=== PATIENT | female | born 1935 | race Caucasian/White ===

== ENCOUNTER 2016-11-24 16:23 | Emergency (ER) | payer MEDICARE ==
[2016-11-24 16:30] VITALS: RESP 16; TEMP 98.2
[2016-11-24] MEDS ORDERED: ASPIRIN 81 MG CHEW PO STA (16:50)
[2016-11-24] MEDS ORDERED: SODIUM CHLORIDE 0.9% 500 ML IV STA (16:50)
[2016-11-24 17:15] LABS: Aty Lym Flag Slight; CH 30.4; CHCM 33.6; HCT 36.3 % (34.0-46.0); HDW 2.53; HGB 11.6 gm/dL (11.4-16.0); MCH 29.1 pg (25.0-35.0); MCV 90.8 fL (80.0-100.0); Mean Platelet Volume 7.4; RDW 13.7 % (11.5-15.5); WBC (Perox) 6.56
[2016-11-24 17:26] LABS: Anion Gap 10 mmol/L; Blood Urea Nitrogen 23 mg/dL (7-17); Calcium 8.6 mg/dL (8.4-10.2); Carbon Dioxide 21 mmol/L (22-30); Chloride 106 mmol/L (98-107); Glucose 131 mg/dL (74-99); Non-African American GFR(MDRD) >60 (>60 ml/min/1.73 sqM); Potassium 4.1 mmol/L (3.5-5.1); Sodium 137 mmol/L (137-145)
[2016-11-24 17:35] LABS: Add Differential Manual Differential
[2016-11-24 17:38] LABS: Manual Review Performed; Nucleated Red Blood Cells 0 /100 WBC (0-0); RBC Morphology Normal; Total Cells Counted 100
[2016-11-24 17:53] LABS: Amorphous Sediment,Urine Rare /hpf; Appearance,Urine Clear (Clear); Bilirubin,Urine Negative (Negative); Glucose,Urine (UA) Negative (Negative); Ketones,Urine Negative (Negative); Leukocyte Esterase,Urine Small (Negative); Nitrite,Urine Negative (Negative); Particle Count 925; Protein,Urine Negative (Negative); RBC,Urine <1 /hpf (0-5); Specific Gravity,Urine 1.007 (1.001-1.035); Squamous Epithelial Cell,Urine 1 /hpf (0-4); UA Billing (MACRO vs. MICRO) MICRO; Urobilinogen,Urine <2.0 mg/dL (<2.0); WBC,Urine 11 /hpf (0-5)
--- NOTE | 2016-11-24 17:56 | ED ---
General Adult HPI - General Chief complaint: Syncope Stated complaint: syncope Time Seen by Provider: 11/24/16 16:35 Source: patient, EMS, RN notes reviewed, old records reviewed Mode of arrival: EMS Limitations: no limitations - History of Present Illness Initial comments: 81-year-old female presenting for lightheadedness and near syncopal episode. Patient states that she had just gotten up from a nap and stood up and felt dizzy and almost passed out back on the couch. She denies any injury from this. She states she's had some persistent dizziness since this episode. She denies CP. She denies any shortness of breath. She denies any fevers or chills. She denies any nausea or vomiting. - Related Data Home Medications Medication Instructions Recorded Confirmed Isosorbide Mononitrate [Imdur] 30 mg PO DAILY 01/10/14 11/24/16 glipiZIDE XL [Glucotrol XL] 7.5 mg PO AC-BRKFST 10/14/15 11/24/16 Aspirin EC [Ecotrin Low Dose] 81 mg PO DAILY 12/07/15 11/24/16 ALPRAZolam [ALPRAZolam] 0.25 mg PO TID PRN 04/15/16 11/24/16 Levothyroxine Sodium [Synthroid] 50 mcg PO DAILY 04/15/16 11/24/16 Ranitidine HCl [Zantac] 150 mg PO BID 04/15/16 11/24/16 Cholecalciferol [Vitamin D3] 2,000 unit PO DAILY 11/24/16 11/24/16 Lisinopril [Zestril] 10 mg PO DAILY 11/24/16 11/24/16 Metoprolol Tartrate [Lopressor] 25 mg PO BID 11/24/16 11/24/16 Nystatin 100,000Unit/gm Cream 1 applic TOPICAL BID 11/24/16 11/24/16 [Mycostatin Cream] traMADol HCL [Ultram] 50 mg PO Q6HR PRN 11/24/16 11/24/16 Previous Rx's Medication Instructions Recorded Meclizine [Antivert] 25 mg PO QID PRN #16 tab 11/24/16 Allergies Allergy/AdvReac Type Severity Reaction Status Date / Time codeine AdvReac Nausea & Verified 11/24/16 16:43 Vomiting tramadol AdvReac Nausea & Verified 11/24/16 16:43 Vomiting Review of Systems ROS Statement: Those systems with pertinent positive or pertinent negative responses have been documented in the HPI. Constitutional: No fevers. No chills. No change in appetite. No unexpected weight loss. Eyes: No visual changes. No eye pain. No sensitivity to light. HENT: No sinus pressure. No ear pain. No hearing changes. No epistaxis. No sore throat. Respiratory: No cough. No SOB. No wheezing. Cardiovascular: No chest pain. No palpitations. No lower extremity edema. Abdomen: No abdominal pain. No nausea. No vomiting. No diarrhea. Genitourinary: No dysuria. No hematuria. No difficulty urinating. No flank pain. Musculoskeletal: No injury. No back pain. No myalgias. Skin: No rash. No lesions. No lacerations. Neuro: No gross strength deficits. Positive near syncope. Lightheadedness. No seizures. No headache. Psych: No confusion. No memory changes. No anxiety/depression. ROS Other: All systems not noted in ROS Statement are negative. Past Medical History Past Medical History: Chest Pain / Angina, Diabetes Mellitus, GERD/Reflux, Hyperlipidemia, Hypertension, Myocardial Infarction ([place]), Osteoarthritis (OA), Pneumonia, Thyroid Disorder Additional Past Medical History / Comment(s): carotid stenosis,sob w/activity, freq constipation,numbness and tingling thomas hands, pneumonia 4 yrs ago, gallstones, urinary leakage, uses a walker Last Myocardial Infarction Date:: 2003 History of Any Multi-Drug Resistant Organisms: None Reported Past Surgical History: Appendectomy, Back Surgery, Cholecystectomy, Heart Catheterization With Stent, Tonsillectomy Additional Past Surgical History / Comment(s): thomas cataract, right carotid endarterectomy,2-12-16 LAP UMBILICAL HERNIA REPAIR AND CHOLEY Past Anesthesia/Blood Transfusion Reactions: Motion Sickness, Postoperative Nausea & Vomiting (PONV) Date of Last Stent Placement:: 2003 Past Psychological History: Anxiety, Depression Additional Psychological History / Comment(s): hx panic attacks. Smoking Status: Never smoker Past Alcohol Use History: None Reported Past Drug Use History: None Reported - Past Family History Father Family Medical History: Liver Disease Additional Family Medical History / Comment(s): etoh, cirrhosis of the liver Mother Family Medical History: Diabetes Mellitus Additional Family Medical History / Comment(s): heart problems. Son(s) Family Medical History: Diabetes Mellitus General Exam - General Exam Comments Initial Comments: General: Awake and Alert. No acute distress. Does not appear acutely ill. Eyes: JOVON, EOM intact. No nystagmus. No scleral icterus. HENT: Atraumatic, normocephalic. Mucous membranes moist. Trachea midline. Neck: The neck is supple, there is no tenderness or JVD. Cardiovascular: Regular rate and rhythm. No murmur, rub, or gallop is appreciated. Distal pulses intact. Respiratory: Lungs are clear to auscultation bilaterally. No wheezes, rales, rhonchi. No respiratory distress. Gastrointestinal: Soft, Nontender. No rebound or guarding. Non-distended. No masses or organomegaly noted. No CVA tenderness. Musculoskeletal: No tenderness. Normal ROM. No gross deformity. No strength deficits. Neurological: A&Ox3. CN II-XII grossly intact, There are no obvious motor or sensory deficits. Coordination appears grossly intact. Speech is normal. Skin: Skin is warm and dry and no rashes or lesions are noted. Psychiatric: Cooperative, appropriate mood & affect, normal judgment. Limitations: no limitations Course Vital Signs 11/24/16 16:27 Temperature 98.2 F Pulse Rate 79 Respiratory 16 Rate Blood Pressure 205/84 O2 Sat by Pulse 97 Oximetry EKG Findings - EKG Comments: EKG Findings:: EKG 20:39. No sinus rhythm. Rate 76. DE 1:30. QRS 72. QT/ QTc 386/434. Normal axis. No STEMI. Normal EKG. Medical Decision Making - Medical Decision Making 81-year-old female presenting for dizziness and possible near syncope. Patient dates that she does have some active dizziness on initial exam. She denies any chest pain or shortness of breath associated. Lab workup including cardiac evaluation was performed. Chest x-ray no acute process Lab workup grossly unremarkable. Troponins negative 2 UA with possible infection, although pt denies urinary symptoms, no plan for treatment at this time Reevaluation of patient with improved blood pressure without medication. States she is still feeling some dizziness still. Antivert was given and she states this did improve her dizziness. She was able to stand with stable gait. I called and discussed with Dr. Ojeda. He is very familiar with the patient states she's had issues with dizziness in the past. We discussed her evaluation today. Discussed that she does not wish to stay in the hospital, and appears stable this time for discharge home with outpatient follow-up. He is agreeable with this plan. I discussed plan for patient follow-up in the next 2-[address] Ojeda. Discussed concerning signs symptoms for immediate return to the ED. Will write for Antivert for home as needed. Discussed changing position slowly to allow her body compensate for positional changes as there may be some orthostatic component to her dizziness. His low suspicion of ACS, CVA, or central vertigo at this time requiring further inpatient admission. Pt is agreeable with plan and discharge home. Pt was concerned she could not get back into [facility] due to leaving her outdoor meyer in her apartment when EMS arrived. I called [facility] and they state staff will be there to let her back in when she arrives. - Lab Data Result diagrams: 11/24/16 16:45 11/24/16 16:45 Lab Results 11/24/16 11/24/16 11/24/16 Range/Units 16:45 16:45 16:45 WBC 6.0 (3.8-10.6) k/uL RBC 4.00 (3.80-5.40) m/uL Hgb 11.6 (11.4-16.0) gm/dL Hct 36.3 (34.0-46.0) % MCV 90.8 (80.0-100.0) fL MCH 29.1 (25.0-35.0) pg MCHC 32.0 (31.0-37.0) g/dL RDW 13.7 (11.5-15.5) % Plt Count 243 (150-450) k/uL Neutrophils % (Manual) 50.0 % Lymphocytes % (Manual) 36.0 % Monocytes % (Manual) 9.0 % Eosinophils % (Manual) 5.0 % Neutrophils # (Manual) 3.0 (1.3-7.7) k/uL Lymphocytes # (Manual) 2.2 (1.0-4.8) k/uL Monocytes # (Manual) 0.5 (0-1.0) k/uL Eosinophils # (Manual) 0.3 (0-0.7) k/uL Nucleated RBCs 0 (0-0) /100 WBC Manual Slide Review Performed RBC Morphology Normal Sodium 137 (137-145) mmol/L Potassium 4.1 (3.5-5.1) mmol/L Chloride 106 (98-107) mmol/L Carbon Dioxide 21 L (22-30) mmol/L Anion Gap 10 mmol/L BUN 23 H (7-17) mg/dL Creatinine 0.87 (0.52-1.04) mg/dL Est GFR (MDRD) Af Amer >60 (>60 ml/min/1.73 sqM) Est GFR (MDRD) Non-Af >60 (>60 ml/min/1.73 sqM) Glucose 131 H (74-99) mg/dL Calcium 8.6 (8.4-10.2) mg/dL Troponin I (0.000-0.034) ng/mL NT-Pro-B Natriuret Pep 127 pg/mL TSH 3.230 (0.465-4.680) mIU/L Urine Color Urine Appearance (Clear) Urine pH (5.0-8.0) Ur Specific [place] (1.001-1.035) Urine Protein (Negative) Urine Glucose (UA) (Negative) Urine Ketones (Negative) Urine Blood (Negative) Urine Nitrite (Negative) Urine Bilirubin (Negative) Urine Urobilinogen (<2.0) mg/dL Ur Leukocyte Esterase (Negative) Urine RBC (0-5) /hpf Urine WBC (0-5) /hpf Ur Squamous Epith Cells (0-4) /hpf Amorphous Sediment (None) /hpf 11/24/16 11/24/16 11/24/16 Range/Units 16:45 17:10 19:26 WBC (3.8-10.6) k/uL RBC (3.80-5.40) m/uL Hgb (11.4-16.0) gm/dL Hct (34.0-46.0) % MCV (80.0-100.0) fL MCH (25.0-35.0) pg MCHC (31.0-37.0) g/dL RDW (11.5-15.5) % Plt Count (150-450) k/uL Neutrophils % (Manual) % Lymphocytes % (Manual) % Monocytes % (Manual) % Eosinophils % (Manual) % Neutrophils # (Manual) (1.3-7.7) k/uL Lymphocytes # (Manual) (1.0-4.8) k/uL Monocytes # (Manual) (0-1.0) k/uL Eosinophils # (Manual) (0-0.7) k/uL Nucleated RBCs (0-0) /100 WBC Manual Slide Review RBC Morphology Sodium (137-145) mmol/L Potassium (3.5-5.1) mmol/L Chloride (98-107) mmol/L Carbon Dioxide (22-30) mmol/L Anion Gap mmol/L BUN (7-17) mg/dL Creatinine (0.52-1.04) mg/dL Est GFR (MDRD) Af Amer (>60 ml/min/1.73 sqM) Est GFR (MDRD) Non-Af (>60 ml/min/1.73 sqM) Glucose (74-99) mg/dL Calcium (8.4-10.2) mg/dL Troponin I <0.012 <0.012 (0.000-0.034) ng/mL NT-Pro-B Natriuret Pep pg/mL TSH (0.465-4.680) mIU/L Urine Color Light Yellow Urine Appearance Clear (Clear) Urine pH 6.0 (5.0-8.0) Ur Specific [place] 1.007 (1.001-1.035) Urine Protein Negative (Negative) Urine Glucose (UA) Negative (Negative) Urine Ketones Negative (Negative) Urine Blood Negative (Negative) Urine Nitrite Negative (Negative) Urine Bilirubin Negative (Negative) Urine Urobilinogen <2.0 (<2.0) mg/dL Ur Leukocyte Esterase Small H (Negative) Urine RBC <1 (0-5) /hpf Urine WBC 11 H (0-5) /hpf Ur Squamous Epith Cells 1 (0-4) /hpf Amorphous Sediment Rare H (None) /hpf - EKG Data -: EKG Interpreted by Ne EKG shows normal: sinus rhythm Rate: normal - Radiology Data Radiology results: report reviewed, image reviewed Disposition Clinical Impression: Dizziness, Near syncope Disposition: HOME SELF-CARE Condition: Stable Instructions: Lightheadedness (ED), Near Syncope (ED) Prescriptions: Meclizine [Antivert] 25 mg PO QID PRN #16 tab PRN Reason: dizziness Referrals: Guzman Ojeda DO [Primary Care Provider] - 1-2 days Time of Disposition: 20:45
[2016-11-24] MEDS ORDERED: MECLIZINE 12.5 MG TAB PO STA (19:05)
--- NOTE | 2016-11-24 19:17 | XR ---
EXAMINATION TYPE: XR chest 2V DATE OF EXAM: 11/24/2016 6:55 PM COMPARISON: April 15, 2016 HISTORY: Dizziness TECHNIQUE: Frontal and lateral views of the chest are obtained. FINDINGS: There is no focal air space opacity, pleural effusion, or pneumothorax seen. The cardiac silhouette size is within normal limits. The osseous structures are intact. IMPRESSION: No acute cardiopulmonary process.
[2016-11-24 21:07] VITALS: BP 188/76; PULSE 65
== END 2016-11-24 21:07 | disposition home or self-care (01) ==
LOC: EC 16:23
DX: R55 Syncope and collapse (principal); R42 Dizziness and giddiness; I10 Essential (primary) hypertension; E11.9 Type 2 diabetes mellitus without complications; M19.90 Unspecified osteoarthritis, unspecified site; E07.9 Disorder of thyroid, unspecified; K21.9 Gastro-esophageal reflux disease without esophagitis; F41.9 Anxiety disorder, unspecified; F32.9 Major depressive disorder, single episode, unspecified; Z79.82 Long term (current) use of aspirin; Z79.84 Long term (current) use of oral hypoglycemic drugs; Z79.899 Other long term (current) drug therapy; Z88.5 Allergy status to narcotic agent; Z88.6 Allergy status to analgesic agent; Z86.79 Personal history of other diseases of the circulatory system
CPT/HCPCS: 36415; 71020; 80048; 81001; 83880; 84443; 84484; 85025; 93005; 99285

== ENCOUNTER 2017-04-01 02:30 | Emergency (ER) | payer MEDICARE ==
[2017-04-01] MEDS ORDERED: hydrALAZINE HCL 20 MG/ML 1 ML VIAL IVP STA ×2 (02:35→03:42)
--- NOTE | 2017-04-01 02:41 | ED ---
General Adult HPI - General Stated complaint: hypertension,headache Time Seen by Provider: 04/01/17 02:30 Source: RN notes reviewed - History of Present Illness Initial comments: This is an 81-year-old female presents emergency Department with the complaint of having a headache and having elevated blood pressure. Patient states about 3 days ago she noted her blood pressure was elevated and she was having headaches she went to see her doctor and he diagnosed with urinary tract infection and gave her an antibiotic. Patient states this evening she woke up with a headache which she states was significant and she nor blood pressure was elevated. Patient states that her blood pressure and her systolic pressure was over 200. Patient denies any numbness or weakness. Patient denies any visual disturbance. Patient denies any chest pain palpitations difficulty breathing or shortness of breath. Patient denies any recent fever chills or cough. Patient denies abdominal pain patient denies nausea vomiting or diarrhea - Related Data Home Medications Medication Instructions Recorded Confirmed Isosorbide Mononitrate [Imdur] 30 mg PO DAILY 01/10/14 11/24/16 glipiZIDE XL [Glucotrol XL] 7.5 mg PO AC-BRKFST 10/14/15 11/24/16 Aspirin EC [Ecotrin Low Dose] 81 mg PO DAILY 12/07/15 11/24/16 ALPRAZolam [ALPRAZolam] 0.25 mg PO TID PRN 04/15/16 11/24/16 Levothyroxine Sodium [Synthroid] 50 mcg PO DAILY 04/15/16 11/24/16 Ranitidine HCl [Zantac] 150 mg PO BID 04/15/16 11/24/16 Cholecalciferol [Vitamin D3] 2,000 unit PO DAILY 11/24/16 11/24/16 Lisinopril [Zestril] 10 mg PO DAILY 11/24/16 11/24/16 Metoprolol Tartrate [Lopressor] 25 mg PO BID 11/24/16 11/24/16 Nystatin 100,000Unit/gm Cream 1 applic TOPICAL BID 11/24/16 11/24/16 [Mycostatin Cream] traMADol HCL [Ultram] 50 mg PO Q6HR PRN 11/24/16 11/24/16 Previous Rx's Medication Instructions Recorded Meclizine [Antivert] 25 mg PO QID PRN #16 tab 11/24/16 Allergies Allergy/AdvReac Type Severity Reaction Status Date / Time codeine AdvReac Nausea & Verified 11/24/16 16:43 Vomiting tramadol AdvReac Nausea & Verified 11/24/16 16:43 Vomiting Review of Systems ROS Statement: Those systems with pertinent positive or pertinent negative responses have been documented in the HPI. ROS Other: All systems not noted in ROS Statement are negative. Past Medical History Past Medical History: Chest Pain / Angina, Diabetes Mellitus, GERD/Reflux, Hyperlipidemia, Hypertension, Myocardial Infarction ([place]), Osteoarthritis (OA), Pneumonia, Thyroid Disorder Additional Past Medical History / Comment(s): carotid stenosis,sob w/activity, freq constipation,numbness and tingling thomas hands, pneumonia 4 yrs ago, gallstones, urinary leakage, uses a walker Last Myocardial Infarction Date:: 2003 History of Any Multi-Drug Resistant Organisms: None Reported Past Surgical History: Appendectomy, Back Surgery, Cholecystectomy, Heart Catheterization With Stent, Tonsillectomy Additional Past Surgical History / Comment(s): thomas cataract, right carotid endarterectomy,--16 LAP UMBILICAL HERNIA REPAIR AND CHOLEY Past Anesthesia/Blood Transfusion Reactions: Motion Sickness, Postoperative Nausea & Vomiting (PONV) Date of Last Stent Placement:: 2003 Past Psychological History: Anxiety, Depression Additional Psychological History / Comment(s): hx panic attacks. Smoking Status: Never smoker Past Alcohol Use History: None Reported Past Drug Use History: None Reported - Past Family History Father Family Medical History: Liver Disease Additional Family Medical History / Comment(s): etoh, cirrhosis of the liver Mother Family Medical History: Diabetes Mellitus Additional Family Medical History / Comment(s): heart problems. Son(s) Family Medical History: Diabetes Mellitus General Exam - General Exam Comments Initial Comments: GENERAL: Patient is well-developed and well-nourished. Patient is nontoxic and well- hydrated and is in mild distress. ENT: Neck is soft and supple. No significant lymphadenopathy is noted. Oropharynx is clear. Moist mucous membranes. Neck has full range of motion without eliciting any pain. EYES: The sclera were anicteric and conjunctiva were pink and moist. Extraocular movements were intact and pupils were equal round and reactive to light. Eyelids were unremarkable. PULMONARY: Unlabored respirations. Good breath sounds bilaterally. No audible rales rhonchi or wheezing was noted. CARDIOVASCULAR: There is a regular rate and rhythm without any murmurs gallops or rubs. ABDOMEN: Soft and nontender with normal bowel sounds. No palpable organomegaly was noted. There is no palpable pulsatile mass. SKIN: Skin is clear with no lesions or rashes and otherwise unremarkable. NEUROLOGIC: Patient is alert and oriented x3. Cranial nerves II through XII are grossly intact. Motor and sensory are also intact. Normal speech, volume and content. Symmetrical smile. MUSCULOSKELETAL: Normal extremities with adequate strength and full range of motion. LYMPHATICS: No significant lymphadenopathy is noted PSYCHIATRIC: Normal psychiatric evaluation. Normal interpersonal interactions appears functionally intact in deals appropriately with others. No signs of depression. No signs of anxiety. Course Vital Signs 04/01/17 04/01/17 04/01/17 02:36 03:38 04:02 Temperature 98.3 F Pulse Rate 74 78 87 Respiratory 16 18 Rate Blood Pressure 184/84 176/75 123/56 O2 Sat by Pulse 97 98 Oximetry Medical Decision Making - Medical Decision Making EKG shows normal sinus rhythm at 60 bpm IL interval 142 QRS is 76 QT is 46 QTC is 431 per patient's EKG shows no ST segment elevation or depression Chest x-ray shows no acute abnormality. CT of the brain shows no acute abnormality Patient's headache was getting better with Tylenol and the blood pressure was down to 123 systolic - Lab Data Result diagrams: 04/01/17 02:45 04/01/17 02:45 Lab Results 04/01/17 04/01/17 04/01/17 Range/Units 02:45 02:45 02:45 WBC 7.6 (3.8-10.6) k/uL RBC 4.22 (3.80-5.40) m/uL Hgb 12.7 (11.4-16.0) gm/dL Hct 37.8 (34.0-46.0) % MCV 89.5 (80.0-100.0) fL MCH 30.1 (25.0-35.0) pg MCHC 33.7 (31.0-37.0) g/dL RDW 15.1 (11.5-15.5) % Plt Count 267 (150-450) k/uL Neutrophils % 56 % Lymphocytes % 30 % Monocytes % 8 % Eosinophils % 2 % Basophils % 1 % Neutrophils # 4.3 (1.3-7.7) k/uL Lymphocytes # 2.3 (1.0-4.8) k/uL Monocytes # 0.6 (0-1.0) k/uL Eosinophils # 0.2 (0-0.7) k/uL Basophils # 0.0 (0-0.2) k/uL PT (9.0-12.0) sec INR (<1.2) APTT (22.0-30.0) sec Sodium 133 L (137-145) mmol/L Potassium 4.5 (3.5-5.1) mmol/L Chloride 101 (98-107) mmol/L Carbon Dioxide 21 L (22-30) mmol/L Anion Gap 11 mmol/L BUN 23 H (7-17) mg/dL Creatinine 0.90 (0.52-1.04) mg/dL Est GFR (MDRD) Af Amer >60 (>60 ml/min/1.73 sqM) Est GFR (MDRD) Non-Af 60 (>60 ml/min/1.73 sqM) Glucose 103 H (74-99) mg/dL Calcium 9.5 (8.4-10.2) mg/dL Magnesium 2.0 (1.6-2.3) mg/dL Total Bilirubin 0.4 (0.2-1.3) mg/dL AST 24 (14-36) U/L ALT 28 (9-52) U/L Alkaline Phosphatase 72 (38-126) U/L Total Creatine Kinase 101 (30-135) U/L CK-MB (CK-2) 1.6 (0.0-2.4) ng/mL CK-MB (CK-2) Rel Index 1.6 Troponin I <0.012 (0.000-0.034) ng/mL Total Protein 6.8 (6.3-8.2) g/dL Albumin 4.1 (3.5-5.0) g/dL 04/01/17 Range/Units 02:45 WBC (3.8-10.6) k/uL RBC (3.80-5.40) m/uL Hgb (11.4-16.0) gm/dL Hct (34.0-46.0) % MCV (80.0-100.0) fL MCH (25.0-35.0) pg MCHC (31.0-37.0) g/dL RDW (11.5-15.5) % Plt Count (150-450) k/uL Neutrophils % % Lymphocytes % % Monocytes % % Eosinophils % % Basophils % % Neutrophils # (1.3-7.7) k/uL Lymphocytes # (1.0-4.8) k/uL Monocytes # (0-1.0) k/uL Eosinophils # (0-0.7) k/uL Basophils # (0-0.2) k/uL PT 9.4 (9.0-12.0) sec INR 0.9 (<1.2) APTT 22.0 (22.0-30.0) sec Sodium (137-145) mmol/L Potassium (3.5-5.1) mmol/L Chloride (98-107) mmol/L Carbon Dioxide (22-30) mmol/L Anion Gap mmol/L BUN (7-17) mg/dL Creatinine (0.52-1.04) mg/dL Est GFR (MDRD) Af Amer (>60 ml/min/1.73 sqM) Est GFR (MDRD) Non-Af (>60 ml/min/1.73 sqM) Glucose (74-99) mg/dL Calcium (8.4-10.2) mg/dL Magnesium (1.6-2.3) mg/dL Total Bilirubin (0.2-1.3) mg/dL AST (14-36) U/L ALT (9-52) U/L Alkaline Phosphatase (38-126) U/L Total Creatine Kinase (30-135) U/L CK-MB (CK-2) (0.0-2.4) ng/mL CK-MB (CK-2) Rel Index Troponin I (0.000-0.034) ng/mL Total Protein (6.3-8.2) g/dL Albumin (3.5-5.0) g/dL Disposition Clinical Impression: Hypertensive urgency Disposition: HOME SELF-CARE Condition: Good Instructions: Hypertension (ED) Additional Instructions: Patient should follow-up with her primary medical care doctor about possibly increasing some of her hypertensive medication. Referrals: Guzman Ojeda DO [Primary Care Provider] - 1-2 days Time of Disposition: 04:12
[2017-04-01 02:42] VITALS: TEMP 98.3
[2017-04-01 02:57] LABS: Basophils % (A) 1 %; CH 30.7; CHCM 34.5; Eosinophils # (A) 0.2 k/uL (0-0.7); Eosinophils % (A) 2 %; HCT 37.8 % (34.0-46.0); HDW 2.43; HGB 12.7 gm/dL (11.4-16.0); Luc # (Auto) 0.25; Luc % (Auto) 3; Lymphocytes # (A) 2.3 k/uL (1.0-4.8); Lymphocytes % (A) 30 %; MCH 30.1 pg (25.0-35.0); MCHC 33.7 g/dL (31.0-37.0); MCV 89.5 fL (80.0-100.0); Mean Platelet Volume 7.8; Monocytes # (A) 0.6 k/uL (0-1.0); Monocytes % (A) 8 %; Neutrophils # (A) 4.3 k/uL (1.3-7.7); Neutrophils % (A) 56 %; RBC 4.22 m/uL (3.80-5.40); RDW 15.1 % (11.5-15.5); WBC 7.6 k/uL (3.8-10.6); WBC (Perox) 7.46
[2017-04-01 03:06] LABS: ALT 28 U/L (9-52); AST 24 U/L (14-36); Alkaline Phosphatase 72 U/L (38-126); Anion Gap 11 mmol/L; Blood Urea Nitrogen 23 mg/dL (7-17); Calcium 9.5 mg/dL (8.4-10.2); Carbon Dioxide 21 mmol/L (22-30); Chloride 101 mmol/L (98-107); Glucose 103 mg/dL (74-99); INR 0.9 (<1.2); Non-African American GFR(MDRD) 60 (>60 ml/min/1.73 sqM); Prothrombin Time 9.4 sec (9.0-12.0); Sodium 133 mmol/L (137-145); Total Bilirubin 0.4 mg/dL (0.2-1.3); Total Protein 6.8 g/dL (6.3-8.2)
[2017-04-01 03:08] LABS: Potassium 4.5 mmol/L (3.5-5.1)
[2017-04-01 03:22] LABS: Creatine Kinase 101 U/L (30-135)
--- NOTE | 2017-04-01 03:32 | CT ---
EXAM: CT Head Without Intravenous Contrast CLINICAL HISTORY: Reason: Headache TECHNIQUE: Axial computed tomography images of the head/brain without intravenous contrast. CTDI is 60.3 mGy and DLP is 999.80 mGy-cm. This CT exam was performed using one or more of the following dose reduction techniques: automated exposure control, adjustment of the mA and/or kV according to patient size, and/or use of iterative reconstruction technique. COMPARISON: CT head on 12/06/2015 FINDINGS: Brain: No acute infarct or hemorrhage identified. No extra-axial fluid collection. No mass effect or midline shift. Stable mild scattered areas of hypoattenuation in the supratentorial white matter likely represent chronic small vessel ischemic changes. Ventricles and sulci: Stable mild prominence of the ventricles and sulci is likely secondary to cerebral volume loss. Skull: Normal. No bony lesion or fracture. Subcutaneous tissues: Normal. Sinuses: Normal. No air-fluid levels or mucosal thickening. Orbits: Bilateral lens implants again noted. Other: Atherosclerotic calcifications in the intracranial vasculature. IMPRESSION: 1. No acute intracranial abnormality. 2. Stable mild chronic small vessel ischemic changes and cerebral volume loss.
[2017-04-01 03:35] LABS: Creatine Kinase MB 1.6 ng/mL (0.0-2.4); Troponin I <0.012 ng/mL (0.000-0.034)
[2017-04-01] MEDS ORDERED: ACETAMINOPHEN TAB 500 MG TAB PO STA (03:41)
--- NOTE | 2017-04-01 03:50 | XR ---
EXAM: XR Chest, 2 Views CLINICAL HISTORY: Reason: Chest Pain TECHNIQUE: Frontal and lateral views of the chest. COMPARISON: Chest radiograph on 11/24/2016 FINDINGS: Lungs/pleura: Stable elevation of the right hemidiaphragm. No focal consolidation. No pleural effusion or pneumothorax. Heart/mediastinum: Normal. No cardiomegaly. Soft tissues: Unremarkable. Bones: No acute fracture. Posterior spinal fusion hardware partially visualized in the upper lumbar spine. Upper abdomen: Cholecystectomy clips in the right upper quadrant. IMPRESSION: No acute disease identified.
[2017-04-01 03:53] VITALS: RESP 18
[2017-04-01] MEDS ORDERED: KETOROLAC 60 MG/2 ML VIAL IVP STA (04:05)
[2017-04-01 04:37] LABS: Glucose,Whole Blood 169 mg/dL (75-99)
[2017-04-01] MEDS ORDERED: ONDANSETRON 4 MG/2 ML VIAL IVP STA (04:38)
[2017-04-01] MEDS ORDERED: SODIUM CHLORIDE 0.9% 500 ML IV STA (04:39)
[2017-04-01 05:31] VITALS: BP 118/57; PULSE 66
== END 2017-04-01 06:03 | disposition home or self-care (01) ==
LOC: EC 02:30
DX: I16.0 Hypertensive urgency (principal); I10 Essential (primary) hypertension; E11.9 Type 2 diabetes mellitus without complications; K21.9 Gastro-esophageal reflux disease without esophagitis; E07.9 Disorder of thyroid, unspecified; M19.90 Unspecified osteoarthritis, unspecified site; I25.2 Old myocardial infarction; Z79.82 Long term (current) use of aspirin; Z79.84 Long term (current) use of oral hypoglycemic drugs; Z79.899 Other long term (current) drug therapy; Z88.5 Allergy status to narcotic agent; Z86.79 Personal history of other diseases of the circulatory system; Z95.5 Presence of coronary angioplasty implant and graft; Z82.49 Family history of ischemic heart disease and other diseases of the circulatory system; Z53.20 Procedure and treatment not carried out because of patient's decision for unspecified reasons
CPT/HCPCS: 99285; 96374; 96375; 96376; 96361; 36415; 93005; 80053; 82550; 82553; 83735; 84484; 85025; 85610; 85730; 71020; 70450; J0360; J2405

== ENCOUNTER 2017-11-27 19:02 | Inpatient (IN) | payer MEDICARE ==
[2017-11-27] MEDS ORDERED: SODIUM CHLORIDE 0.9% 1,000 ML IV STA (19:32)
[2017-11-27] MEDS ORDERED: LORazepam 1 MG TAB PO STA (19:32)
[2017-11-27] MEDS ORDERED: ONDANSETRON 4 MG/2 ML VIAL IVP STA (19:32)
[2017-11-27] MEDS ORDERED: ACETAMINOPHEN TAB 500 MG TAB PO STA (19:33)
[2017-11-27 20:07] LABS: Basophils % (A) 0 %; Eosinophils # (A) 0.1 k/uL (0-0.7); Eosinophils % (A) 1 %; HCT 33.1 % (34.0-46.0); HGB 11.1 gm/dL (11.4-16.0); Lymphocytes % (A) 23 %; MCH 29.7 pg (25.0-35.0); MCHC 33.5 g/dL (31.0-37.0); MCV 88.7 fL (80.0-100.0); Mean Platelet Volume 8.8; Monocytes # (A) 0.5 k/uL (0-1.0); Monocytes % (A) 6 %; Neutrophils # (A) 6.1 k/uL (1.3-7.7); Neutrophils % (A) 69 %; Platelet Count 293 k/uL (150-450); RBC 3.73 m/uL (3.80-5.40); RDW 13.3 % (11.5-15.5); WBC 8.7 k/uL (3.8-10.6)
--- NOTE | 2017-11-27 20:17 | CT ---
EXAMINATION TYPE: CT brain wo con DATE OF EXAM: 11/27/2017 COMPARISON: 12/06/2015 HISTORY: Hypertension and vomiting. Neurologic deficits. CT DLP: 983.9 mGycm Automated exposure control for dose reduction was used. TECHNIQUE: CT scan of the head is performed without contrast. FINDINGS: There is no acute intracranial hemorrhage or midline shift identified. There is diffuse v entricular and sulcal prominence consistent with diffuse age-related cerebral atrophy. There is low- attenuation in the periventricular white matter consistent with chronic small vessel ischemic change. The globes are intact and the visualized sinuses are clear. Punctate calcification within the rig ht subarachnoid space of the frontal lobe may relate to prior intrathecal contrast injection or prior injury/subarachnoid hemorrhage. No acute subarachnoid hemorrhage is seen. This punctate calcificatio n is unchanged from the prior of 04/01/2017. Old lacunar injury is seen of the left temporal lobe also unchanged from the exam of 2017. Additional right frontal encephalomalacia is also unchanged from th e exam of 2017. IMPRESSION: 1. No acute intracranial process. Although if there are neurologic deficits MRI could be performed. 2. Multiple unchanged old lacunar injuries, diffuse age-related cerebral atrophy and chronic small ve ssel ischemic change.
--- NOTE | 2017-11-27 20:18 | XR ---
EXAMINATION TYPE: XR chest 2V DATE OF EXAM: 11/27/2017 COMPARISON: 04/01/2017 HISTORY: Altered mental status TECHNIQUE: Frontal and lateral views of the chest are obtained. FINDINGS: Chronic right hemidiaphragm elevation is unchanged from the prior. There is no focal air s pace opacity, pleural effusion, or pneumothorax seen. The cardiac silhouette size is within normal l imits. The osseous structures are intact. Mild multilevel degenerative changes of the thoracic spin e and partial visualization of surgical fusion of the lumbar spine are seen. Moderate acromioclavicul ar arthropathy is also noted on the right. IMPRESSION: No acute cardiopulmonary process.
[2017-11-27 20:19] LABS: Creatine Kinase 94 U/L (30-135)
[2017-11-27 20:20] LABS: Partial Thromboplastin Time 22.1 sec (22.0-30.0); Prothrombin Time 9.6 sec (9.0-12.0)
[2017-11-27 20:21] LABS: ALT 15 U/L (9-52); AST 24 U/L (14-36); Albumin 3.6 g/dL (3.5-5.0); Alkaline Phosphatase 59 U/L (38-126); Anion Gap 9 mmol/L; Blood Urea Nitrogen 24 mg/dL (7-17); Calcium 8.9 mg/dL (8.4-10.2); Carbon Dioxide 21 mmol/L (22-30); Chloride 100 mmol/L (98-107); Glucose 126 mg/dL (74-99); Potassium 5.5 mmol/L (3.5-5.1); Sodium 130 mmol/L (137-145); Total Bilirubin 0.4 mg/dL (0.2-1.3); Total Protein 6.5 g/dL (6.3-8.2)
[2017-11-27 20:32] LABS: Creatine Kinase MB 1.5 ng/mL (0.0-2.4); Troponin I <0.012 ng/mL (0.000-0.034)
--- NOTE | 2017-11-27 22:23 | ED ---
General Adult HPI - General Chief complaint: Neuro Symptoms/Deficit Stated complaint: hypertension Time Seen by Provider: 11/27/17 19:19 Source: patient, EMS Mode of arrival: EMS Limitations: no limitations - History of Present Illness Initial comments: 2 years old female with a history of angina diabetes and gastroesophageal reflux disease hypertension or myocardial infarction and thyroid disease comes in with the nausea and vomiting she threw up several times today and her blood pressure was Quite high and then she had excruciating headache she is concerned about her heart rate she has a headache been throwing up no neck stiffness no chest pain now but then she is a diabetic no shortness of breath mild discomfort in the epigastric area no frequency urgency dysuria no symptoms of TIA or CVA - Related Data Home Medications Medication Instructions Recorded Confirmed Isosorbide Mononitrate [Imdur] 30 mg PO DAILY 01/10/14 11/27/17 glipiZIDE XL [Glucotrol XL] 7.5 mg PO AC-BRKFST 10/14/15 11/27/17 Aspirin EC [Ecotrin Low Dose] 81 mg PO DAILY 12/07/15 11/27/17 ALPRAZolam [ALPRAZolam] 0.25 mg PO TID PRN 04/15/16 11/27/17 Levothyroxine Sodium [Synthroid] 50 mcg PO DAILY 04/15/16 11/27/17 Ranitidine HCl [Zantac] 150 mg PO BID 04/15/16 11/27/17 Cholecalciferol [Vitamin D3] 2,000 unit PO DAILY 11/24/16 11/27/17 Metoprolol Tartrate [Lopressor] 25 mg PO BID 11/24/16 11/27/17 traMADol HCL [Ultram] 50 mg PO Q6HR PRN 11/24/16 11/27/17 Atorvastatin [Lipitor] 10 mg PO DAILY 11/27/17 11/27/17 Lisinopril [Zestril] 20 mg PO BID 11/27/17 11/27/17 Mirtazapine [Remeron] 15 mg PO HS 11/27/17 11/27/17 Allergies Allergy/AdvReac Type Severity Reaction Status Date / Time codeine AdvReac Nausea & Verified 11/27/17 19:45 Vomiting Review of Systems ROS Statement: Those systems with pertinent positive or pertinent negative responses have been documented in the HPI. ROS Other: All systems not noted in ROS Statement are negative. Past Medical History Past Medical History: Chest Pain / Angina, Diabetes Mellitus, GERD/Reflux, Hyperlipidemia, Hypertension, Myocardial Infarction ([place]), Osteoarthritis (OA), Pneumonia, Thyroid Disorder Additional Past Medical History / Comment(s): carotid stenosis,sob w/activity, freq constipation,numbness and tingling thomas hands, pneumonia 4 yrs ago, gallstones, urinary leakage, uses a walker Last Myocardial Infarction Date:: 2003 History of Any Multi-Drug Resistant Organisms: None Reported Past Surgical History: Appendectomy, Back Surgery, Cholecystectomy, Heart Catheterization With Stent, Tonsillectomy Additional Past Surgical History / Comment(s): thomas cataract, right carotid endarterectomy,2-12-16 LAP UMBILICAL HERNIA REPAIR AND CHOLEY Past Anesthesia/Blood Transfusion Reactions: Motion Sickness, Postoperative Nausea & Vomiting (PONV) Date of Last Stent Placement:: 2003 Past Psychological History: Anxiety, Depression Smoking Status: Never smoker Past Alcohol Use History: None Reported Past Drug Use History: None Reported - Past Family History Father Family Medical History: Liver Disease Additional Family Medical History / Comment(s): etoh, cirrhosis of the liver Mother Family Medical History: Diabetes Mellitus Additional Family Medical History / Comment(s): heart problems. Son(s) Family Medical History: Diabetes Mellitus General Exam - General Exam Comments Initial Comments: General: The patient is awake and alert, in no distress, and does not appear acutely ill. Skin: Skin is warm and dry and no rashes or lesions are noted. Eye: Pupils are equal, round and reactive to light, extra-ocular movements are intact; there is normal conjunctiva bilaterally. Ears, nose, mouth and throat: There are moist mucous membranes and no oral lesions. Neck: The neck is supple, there is no tenderness or JVD. Cardiovascular: There is a regular rate and rhythm. No murmur, rub or gallop is appreciated. Respiratory: To auscultation bilateral, no wheezing no rhonchi no distress respiratory morrow noticed Gastrointestinal: Soft, non-distended, non-tender abdomen without masses or organomegaly noted. There is no rebound or guarding present. Bowel sounds are unremarkable. Back: There is no tenderness to palpation in the midline. There is no obvious deformity. Musculoskeletal: Normal ROM, no tenderness, There is no pedal edema. There is no calf tenderness or swelling. No cords were appreciated. Neurological: CN II-XII intact, Cranial nerves III through XII are intact. There are no obvious motor or sensory deficits. Coordination appears grossly intact. Speech is normal. Psychiatric: Cooperative, appropriate mood & affect, normal judgment. Limitations: no limitations Course Vital Signs 11/27/17 19:04 Temperature 98 F Pulse Rate 73 Respiratory 16 Rate Blood Pressure 199/81 O2 Sat by Pulse 98 Oximetry She is reassessed at 2220, she is feeling better she is not nauseous anymore CBC , INR, potassium is slightly high at 5.4 and troponin is negative EKG is unremarkable head CT is normal blood pressure has dropped down to 160 systolic chest x-rays unremarkable I plan to observe her overnight since he has a history of diabetes and she'll history of coronary artery disease though she is feeling better #look good but I would feel better once every 3 sets of cardiac markers unremarkable we'll admit her to Dr. Peres's service and will do cardiology consult EKG Findings - EKG Comments: EKG Findings:: EKG is a normal sinus rhythm ventricular rate is 70 IA interval is 132 QRS duration is 76 QT/QTc is 410/442 review of this EKG reveals T-wave inversion in lead [address] elevation or ST depression noticed any other leads Medical Decision Making - Lab Data Result diagrams: 11/27/17 19:09 11/27/17 19:09 Lab Results 11/27/17 11/27/17 11/27/17 Range/Units 19:09 19:09 19:09 WBC 8.7 (3.8-10.6) k/uL RBC 3.73 L (3.80-5.40) m/uL Hgb 11.1 L (11.4-16.0) gm/dL Hct 33.1 L (34.0-46.0) % MCV 88.7 (80.0-100.0) fL MCH 29.7 (25.0-35.0) pg MCHC 33.5 (31.0-37.0) g/dL RDW 13.3 (11.5-15.5) % Plt Count 293 (150-450) k/uL Neutrophils % 69 % Lymphocytes % 23 % Monocytes % 6 % Eosinophils % 1 % Basophils % 0 % Neutrophils # 6.1 (1.3-7.7) k/uL Lymphocytes # 2.0 (1.0-4.8) k/uL Monocytes # 0.5 (0-1.0) k/uL Eosinophils # 0.1 (0-0.7) k/uL Basophils # 0.0 (0-0.2) k/uL PT (9.0-12.0) sec INR (<1.2) APTT (22.0-30.0) sec Sodium 130 L (137-145) mmol/L Potassium 5.5 H (3.5-5.1) mmol/L Chloride 100 (98-107) mmol/L Carbon Dioxide 21 L (22-30) mmol/L Anion Gap 9 mmol/L BUN 24 H (7-17) mg/dL Creatinine 0.70 (0.52-1.04) mg/dL Est GFR (CKD-EPI)AfAm >90 (>60 ml/min/1.73 sqM) Est GFR (CKD-EPI)NonAf 80 (>60 ml/min/1.73 sqM) Glucose 126 H (74-99) mg/dL Calcium 8.9 (8.4-10.2) mg/dL Total Bilirubin 0.4 (0.2-1.3) mg/dL AST 24 (14-36) U/L ALT 15 (9-52) U/L Alkaline Phosphatase 59 (38-126) U/L Total Creatine Kinase 94 (30-135) U/L CK-MB (CK-2) 1.5 (0.0-2.4) ng/mL CK-MB (CK-2) Rel Index 1.6 Troponin I <0.012 (0.000-0.034) ng/mL Total Protein 6.5 (6.3-8.2) g/dL Albumin 3.6 (3.5-5.0) g/dL 11/27/17 Range/Units 19:09 WBC (3.8-10.6) k/uL RBC (3.80-5.40) m/uL Hgb (11.4-16.0) gm/dL Hct (34.0-46.0) % MCV (80.0-100.0) fL MCH (25.0-35.0) pg MCHC (31.0-37.0) g/dL RDW (11.5-15.5) % Plt Count (150-450) k/uL Neutrophils % % Lymphocytes % % Monocytes % % Eosinophils % % Basophils % % Neutrophils # (1.3-7.7) k/uL Lymphocytes # (1.0-4.8) k/uL Monocytes # (0-1.0) k/uL Eosinophils # (0-0.7) k/uL Basophils # (0-0.2) k/uL PT 9.6 (9.0-12.0) sec INR 1.0 (<1.2) APTT 22.1 (22.0-30.0) sec Sodium (137-145) mmol/L Potassium (3.5-5.1) mmol/L Chloride (98-107) mmol/L Carbon Dioxide (22-30) mmol/L Anion Gap mmol/L BUN (7-17) mg/dL Creatinine (0.52-1.04) mg/dL Est GFR (CKD-EPI)AfAm (>60 ml/min/1.73 sqM) Est GFR (CKD-EPI)NonAf (>60 ml/min/1.73 sqM) Glucose (74-99) mg/dL Calcium (8.4-10.2) mg/dL Total Bilirubin (0.2-1.3) mg/dL AST (14-36) U/L ALT (9-52) U/L Alkaline Phosphatase (38-126) U/L Total Creatine Kinase (30-135) U/L CK-MB (CK-2) (0.0-2.4) ng/mL CK-MB (CK-2) Rel Index Troponin I (0.000-0.034) ng/mL Total Protein (6.3-8.2) g/dL Albumin (3.5-5.0) g/dL Disposition Clinical Impression: Headache, Nausea and vomiting, Hypertension Disposition: ADMITTED IP TO THIS HOSP Condition: Good Referrals: Guzman Ojeda DO [Primary Care Provider] - 1-2 days
[2017-11-27] MEDS ORDERED: NITROGLYCERIN SL TABS 0.4 MG TAB SUBLINGUAL PRN (22:26)
[2017-11-27] MEDS ORDERED: traMADol 50 MG TAB PO PRN (22:31)
[2017-11-28 01:43] LABS: Creatine Kinase 113 U/L (30-135)
[2017-11-28 01:56] LABS: Creatine Kinase MB 1.8 ng/mL (0.0-2.4); Troponin I <0.012 ng/mL (0.000-0.034)
[2017-11-28 07:29] LABS: Cholesterol 155 mg/dL (<200); HDL Cholesterol 44 mg/dL (40-60); LDL Cholesterol,Calculated 87 mg/dL (0-99); Triglycerides 122 mg/dL (<150)
[2017-11-28 07:42] LABS: Creatine Kinase 110 U/L (30-135)
[2017-11-28 07:54] LABS: Creatine Kinase MB 2.1 ng/mL (0.0-2.4); Troponin I <0.012 ng/mL (0.000-0.034)
[2017-11-28 08:48] LABS: Glucose,Whole Blood 73 mg/dL (75-99)
[2017-11-28] MEDS ORDERED: LISINOPRIL 20 MG TAB PO SCH (09:00)
[2017-11-28] MEDS ORDERED: ASPIRIN 325 MG TAB PO SCH (09:00)
[2017-11-28] MEDS ORDERED: FAMOTIDINE 20 MG TAB PO SCH (09:00)
[2017-11-28] MEDS: LEVOTHYROXINE 50 MCG TAB PO SCH (11:34)
[2017-11-28] MEDS: ASPIRIN 81 MG PO SCH (11:36)
[2017-11-28] MEDS: glipiZIDE 5 MG TAB PO SCH (11:36)
[2017-11-28] MEDS: METOPROLOL TARTRATE 25 MG TAB PO SCH ×2 (11:40→20:58)
[2017-11-28] MEDS: amLODIPine 10 MG TAB PO SCH (12:17)
--- NOTE | 2017-11-28 12:23 | US ---
EXAMINATION TYPE: US abdomen complete DATE OF EXAM: 11/28/2017 COMPARISON: NONE CLINICAL HISTORY: nausea, vomiting abd pain. vomiting this am EXAM MEASUREMENTS: Liver Length: 13.8 cm Gallbladder Wall: Surgically absent CBD: 0.3 cm Spleen: not seen Right Kidney: 9.7 x 4.7 x 4.8 cm Left Kidney: 8.8 x 3.6 x 4.9 cm distended, gassy abd Pancreas: not seen due to bowel gas Liver: limited views Gallbladder: Surgically absent Evidence for sonographic Lara's sign: no CBD: wnl Spleen: unable to visualize due to bowel gas and high placement in ribcage Right Kidney: wnl Left Kidney: wnl Upper IVC: wnl Abd Aorta: not seen due to gas IMPRESSION: 1. Postcholecystectomy changes. 2. Limited pancreas, spleen and liver due to bowel gas.
[2017-11-28] MEDS: ATORVASTATIN 10 MG TAB PO SCH (14:17)
[2017-11-28] MEDS: CHOLECALCIFEROL 1,000 UNIT TAB PO SCH (14:17)
[2017-11-28] MEDS: ISOSORBIDE MONONITRATE ER 30 MG TAB.ER.24H PO SCH (14:18)
[2017-11-28] MEDS ORDERED: SODIUM CHLORIDE 0.9% 1,000 ML IV SCH (15:15)
--- NOTE | 2017-11-28 15:39 | P.HPIM ---
History of Present Illness 82-year-old very pleasant female came in with compensative from the nausea vomiting 1 episode yesterday along with the diffuse abdominal discomfort mild. Patient had history of microinfarction in the past. Patient denied any fever chills patient denied any flulike symptoms patient denied any significant diarrhea. Patient had 3 sets of troponins which are negative EKG did not show any acute ST-T wave changes. Patient will be started on Protonix twice a day patient was started on diet and advanced as tolerated. Patient denied any chest pain patient denied any shortness of breath lightheadedness diaphoresis Review of Systems REVIEW OF SYSTEMS: CONSTITUTIONAL: No fever, no malaise, no fatigue. HEENT: No recent visual problems or hearing problems. Denied any sore throat. CARDIOVASCULAR: No chest pain, orthopnea, PND, no palpitations, no syncope. PULMONARY: No shortness of breath, no cough, no hemoptysis. GASTROINTESTINAL: As mentioned in HPI NEUROLOGICAL: No headaches, no weakness, no numbness. HEMATOLOGICAL: Denies any bleeding or petechiae. GENITOURINARY: Denies any burning micturition, frequency, or urgency. MUSCULOSKELETAL/RHEUMATOLOGICAL: Denies any joint pain, swelling, or any muscle pain. ENDOCRINE: Denies any polyuria or polydipsia. The rest of the 14-point review of systems is negative. Past Medical History Past Medical History: Chest Pain / Angina, Diabetes Mellitus, GERD/Reflux, Hyperlipidemia, Hypertension, Myocardial Infarction ([place]), Osteoarthritis (OA), Pneumonia, Thyroid Disorder Additional Past Medical History / Comment(s): carotid stenosis,sob w/activity, freq constipation,numbness and tingling thomas hands, pneumonia 4 yrs ago, gallstones, urinary leakage, uses a walker Last Myocardial Infarction Date:: 2003 History of Any Multi-Drug Resistant Organisms: None Reported Past Surgical History: Appendectomy, Back Surgery, Cholecystectomy, Heart Catheterization With Stent, Tonsillectomy Additional Past Surgical History / Comment(s): thomas cataract, right carotid endarterectomy,2-12-16 LAP UMBILICAL HERNIA REPAIR AND CHOLEY Past Anesthesia/Blood Transfusion Reactions: Motion Sickness, Postoperative Nausea & Vomiting (PONV) Date of Last Stent Placement:: 2003 Past Psychological History: Anxiety, Depression Smoking Status: Never smoker Past Alcohol Use History: None Reported Past Drug Use History: None Reported - Past Family History Father Family Medical History: Liver Disease Additional Family Medical History / Comment(s): etoh, cirrhosis of the liver Mother Family Medical History: Diabetes Mellitus Additional Family Medical History / Comment(s): heart problems. Son(s) Family Medical History: Diabetes Mellitus Medications and Allergies Home Medications Medication Instructions Recorded Confirmed Type Isosorbide Mononitrate [Imdur] 30 mg PO DAILY 01/10/14 11/27/17 History glipiZIDE XL [Glucotrol XL] 7.5 mg PO AC-BRKFST 10/14/15 11/27/17 History Aspirin EC [Ecotrin Low Dose] 81 mg PO DAILY 12/07/15 11/27/17 History ALPRAZolam [ALPRAZolam] 0.25 mg PO TID PRN 04/15/16 11/27/17 History Levothyroxine Sodium [Synthroid] 50 mcg PO DAILY 04/15/16 11/27/17 History Ranitidine HCl [Zantac] 150 mg PO BID 04/15/16 11/27/17 History Cholecalciferol [Vitamin D3] 2,000 unit PO DAILY 11/24/16 11/27/17 History Metoprolol Tartrate [Lopressor] 25 mg PO BID 11/24/16 11/27/17 History traMADol HCL [Ultram] 50 mg PO Q6HR PRN 11/24/16 11/27/17 History Atorvastatin [Lipitor] 10 mg PO DAILY 11/27/17 11/27/17 History Lisinopril [Zestril] 20 mg PO BID 11/27/17 11/27/17 History Mirtazapine [Remeron] 15 mg PO HS 11/27/17 11/27/17 History Allergies Allergy/AdvReac Type Severity Reaction Status Date / Time codeine AdvReac Nausea & Verified 11/27/17 19:45 Vomiting Physical Exam Vitals: Vital Signs Temp Pulse Pulse Resp BP BP Pulse Ox 11/28/17 15:00 98.2 F 67 17 155/78 96 11/28/17 14:56 98 F 66 18 162/66 98 11/28/17 14:20 66 18 162/66 11/28/17 14:00 64 18 191/72 98 11/28/17 10:50 74 18 184/77 99 11/28/17 09:54 66 18 199/74 100 03/19/18 07:31 98 11/28/17 07:24 60 16 137/67 97 11/28/17 06:29 65 16 182/78 98 11/28/17 04:44 66 17 160/64 98 11/28/17 03:40 58 L 16 128/62 97 11/28/17 02:30 70 16 157/72 97 11/28/17 01:27 58 L 17 157/68 98 11/28/17 00:19 62 16 153/67 98 11/27/17 23:14 58 L 17 146/64 99 11/27/17 22:14 68 17 166/72 99 11/27/17 21:14 63 16 154/67 95 11/27/17 20:14 68 16 156/80 98 11/27/17 19:04 98 F 73 16 199/81 98 Intake and Output 11/28/17 11/28/17 11/28/17 06:59 14:59 22:59 Intake Total 250 Balance 250 Intake: Amount of Fluid Infused ( 250 ml) Other: Weight 65.6 kg PHYSICAL EXAMINATION: GENERAL: The patient is alert and oriented x3, not in any acute distress. Well developed, well nourished. HEENT: Pupils are round and equally reacting to light. EOMI. No scleral icterus. No conjunctival pallor. Normocephalic, atraumatic. No pharyngeal erythema. No thyromegaly. CARDIOVASCULAR: S1 and S2 present. No murmurs, rubs, or gallops. PULMONARY: Chest is clear to auscultation, no wheezing or crackles. ABDOMEN: Soft, minimal tenderness on deep palpation, nondistended, normoactive bowel sounds. No palpable organomegaly. MUSCULOSKELETAL: No joint swelling or deformity. EXTREMITIES: No cyanosis, clubbing, or pedal edema. NEUROLOGICAL: Gross neurological examination did not reveal any focal deficits. SKIN: No rashes. Results CBC & Chem 7: 11/27/17 19:09 11/28/17 06:50 Labs: Abnormal Lab Results - Last 24 Hours (Table) 11/27/17 11/27/17 11/28/17 Range/Units 19:09 19:09 08:46 RBC 3.73 L (3.80-5.40) m/uL Hgb 11.1 L (11.4-16.0) gm/dL Hct 33.1 L (34.0-46.0) % Sodium 130 L (137-145) mmol/L Potassium 5.5 H (3.5-5.1) mmol/L Carbon Dioxide 21 L (22-30) mmol/L BUN 24 H (7-17) mg/dL Glucose 126 H (74-99) mg/dL POC Glucose (mg/dL) 73 L (75-99) mg/dL Thrombosis Risk Factor Assmnt - Choose All That Apply Any of the Below Risk Factors Present?: Yes Each Factor Represents 1 point: Obesity (BMI >25) Other Risk Factors: Yes Each Risk Factor Represents 3 Points: Age 75 years or older Other congenital or acquired thrombophilia - If yes, enter type in comment: No Thrombosis Risk Factor Assessment Total Risk Factor Score: 4 Thrombosis Risk Factor Assessment Level: Moderate Risk Assessment and Plan Plan: -Nausea vomiting along with diffuse abdominal pain: Probably related to gastritis patient is on IV Protonix will be started on clear liquid diet advance as tolerated. Ultrasound of the abdomen did not show any significant abnormality -History of coronary artery disease will rule out acute coronary syndromes, cardiology was consulted from ER. Hyperlipidemia Hypertension: Patient had elevated blood pressure at home secondary to nausea and amlodipine will be continued -Mild hyperkalemia because of nausea vomiting and lisinopril lisinopril is being held. -Hyponatremia mild secondary to intravascular well in the patient patient will be started on gentle hydration. -Hypothyroidism -Gastroesophageal reflux disease
[2017-11-28 17:50] LABS: Glucose,Whole Blood 79 mg/dL (75-99)
[2017-11-28] MEDS: PANTOPRAZOLE 40 MG/10 ML VIAL IVP SCH (17:58)
--- NOTE | 2017-11-28 19:20 | ECHOF ---
Referral Reason:cp MEASUREMENTS -------- HEIGHT: 157.5 cm WEIGHT: 67.1 kg BP: 137/67 RVIDd: 2.4 cm (< 3.3) IVSd: 1.6 cm (0.6 - 1.1) LVIDd: 3.2 cm (3.9 - 5.3) LVPWd: 1.4 cm (0.6 - 1.1) IVSs: 2.0 cm LVIDs: 1.4 cm LVPWs: 1.5 cm LAESV Index (A-L): 33.07 ml/m Ao Diam: 2.4 cm (2.0 - 3.7) AV Cusp: 1.5 cm (1.5 - 2.6) LA Diam: 3.6 cm (2.7 - 3.8) MV EXCURSION: 12.842 mm (> 18.000) MV EF SLOPE: 34 mm/s (70 - 150) EPSS: 0.4 cm MV E Rajesh: 1.44 m/s MV DecT: 179 ms MV A Rajesh: 1.47 m/s MV E/A Ratio: 0.97 AV maxP.17 mmHg AV meanP.08 mmHg AR PHT: 393 ms RAP: 5.00 mmHg RVSP: 38.20 mmHg FINDINGS -------- Sinus rhythm. This was a technically good study. The left ventricular size is normal. There is moderate concentric left ventricular hypertrophy. O verall left ventricular systolic function is normal with, an EF between 55 - 60 %. The right ventricle is normal in size and function. LA is midly dilated 29-33ml/m2. The right atrium is normal in size. Aortic valve is trileaflet and is moderately thickened and sclerosed. There is mild aortic regurgita tion. No significant gradient. The mitral valve leaflets are mildly thickened. Mild mitral annular calcification present. Mild m itral regurgitation is present. The peak and mean MV gradients are 11.50mmHg 4.32mmHg as measured by doppler. Mild mitral stenosis. There is moderate thickening of the posterior mitral valve leaf let. Moderate tricuspid regurgitation present. There is borderline pulmonary artery hypertension. The right ventricular systolic pressure, as measured by Doppler, is 38.20mmHg. Pulmonic valve appears structurally normal. The aortic root size is normal. Normal inferior vena cava with normal inspiratory collapse consistent with estimated right atrial pre ssure of 5 mmHg. The pericardium is normal. CONCLUSIONS -------- 1. Sinus rhythm. 2. This was a technically good study. 3. The left ventricular size is normal. 4. There is moderate concentric left ventricular hypertrophy. 5. Overall left ventricular systolic function is normal with, an EF between 55 - 60 %. 6. The right ventricle is normal in size and function. 7. LA is midly dilated 29-33ml/m2. 8. The right atrium is normal in size. 9. Aortic valve is trileaflet and is moderately thickened. 10. There is mild aortic regurgitation. 11. The mitral valve leaflets are mildly thickened. 12. Mild mitral annular calcification present. 13. Mild mitral regurgitation is present. 14. The peak and mean MV gradients are 11.50mmHg 4.32mmHg as measured by doppler. 15. There is moderate thickening of the posterior mitral valve leaflet. 16. Moderate tricuspid regurgitation present. 17. There is borderline pulmonary artery hypertension. 18. The right ventricular systolic pressure, as measured by Doppler, is 38.20mmHg. 19. Pulmonic valve appears structurally normal. 20. The aortic root size is normal. 21. Normal inferior vena cava with normal inspiratory collapse consistent with estimated right atrial pressure of 5 mmHg. 22. The pericardium is normal. SHAVING MACHINE OPERATOR: Radha Green RDCS
[2017-11-28] MEDS: MIRTAZAPINE 15 MG TAB PO SCH (20:58)
[2017-11-28] MEDS: ALPRAZolam 0.25 MG TAB PO PRN (20:58)
[2017-11-28 21:02] LABS: Glucose,Whole Blood 103 mg/dL (75-99)
[2017-11-28] MEDS ORDERED: ATROPINE SULFATE 0.1 MG/ML 10ML SYRINGE ONE (22:21)
[2017-11-28 22:48] LABS: Glucose,Whole Blood 86 mg/dL (75-99)
[2017-11-28 23:10] LABS: Glucose,Whole Blood 77 mg/dL (75-99)
[2017-11-28] MEDS ORDERED: DEXTROSE 5% IN WATER 1,000 ML IV SCH (23:15)
[2017-11-29 00:19] LABS: Glucose,Whole Blood 93 mg/dL (75-99)
[2017-11-29] MEDS: LEVOTHYROXINE 50 MCG TAB PO SCH (06:23)
[2017-11-29] MEDS: PANTOPRAZOLE 40 MG/10 ML VIAL IVP SCH ×2 (06:24→09:31)
[2017-11-29 06:29] LABS: Glucose,Whole Blood 112 mg/dL (75-99)
[2017-11-29 06:34] LABS: Calcium 9.8 mg/dL (8.4-10.2); Potassium 4.9 mmol/L (3.5-5.1)
[2017-11-29] MEDS ORDERED: FAMOTIDINE 20 MG TAB PO SCH (09:00)
--- NOTE | 2017-11-29 09:14 | CONS ---
CONSULTATION CHIEF COMPLAINT: Near syncope. This is an 82-year-old lady with history of coronary artery disease, status post angioplasty, hypertension, dyslipidemia, [id number] diabetes, who presented to the hospital with symptoms of dizziness, nausea, vomiting and diffuse abdominal discomfort. Her EKG showed sinus rhythm without acute ST-T wave changes. She has had troponins that were negative. Last night around 10:00 while she was still awake she had a 4-second pause and had to receive atropine and it is unclear if she also received CPR, but she came back and had sinus rhythm. There was no loss of consciousness and has remained in sinus rhythm since. The patient was on a beta scar when she first came and that has not been resumed. REVIEW OF SYSTEMS: CONSTITUTIONAL: Negative HEENT is unremarkable. CARDIOVASCULAR: Negative. PULMONARY: Negative. GI: Significant for abdominal discomfort. NEUROLOGICAL: Significant for dizziness. HEMATOLOGICAL: Negative. GENITOURINARY: Negative. MUSCULOSKELETAL: Significant for joint pains. ENDOCRINE: Negative. Rest of the system review is not relevant. PAST MEDICAL HISTORY: Significant for coronary artery disease, status post angioplasty, hypertension, diabetes, dyslipidemia, GERD, osteoarthritis. MEDICATIONS: Medications at home include Imdur 30 q. daily, Glucotrol XL 7.5 mg daily, aspirin, Xanax 0.25 t.i.d., Synthroid, Zantac, vitamin D, Lopressor 25 b.i.d., tramadol, atorvastatin, Zestril, and Remeron. PAST SURGICAL HISTORY: Significant for appendectomy, back surgery, cholecystectomy, tonsillectomy. ALLERGIES: Allergies are as charted. PHYSICAL EXAM: On exam, she is comfortable at rest. Vital signs was stable. There is no jugular venous distention. Carotid upstroke is normal. There is no bruits. Chest exam reveals good air entry bilaterally. Heart exam reveals first and second heart sounds. No gallop. Has an ejection systolic murmur in the aortic area. Abdomen is soft. Examination of extremities did not reveal any edema. Peripheral pulses are felt. Had an echocardiogram that showed sinus rhythm, mild mitral stenosis with moderate tricuspid regurgitation. LABS: Labs show potassium of 4.9, creatinine is 1. Two sets of troponins are negative. Hemoglobin is 11.1. EKG shows sinus rhythm. Rhythm strip shows that she had a 4- second pause. ASSESSMENT: 1. Sinus pause in a patient who has had prior episodes of syncope and near syncope on this presentation. 2. Coronary artery disease, status post angioplasty. 3. Hypertension. 4. Diabetes. 5. Dyslipidemia. PLAN: I advised the patient to undergo a permanent pacemaker. She is going to think over it and make up her mind. In the meantime, she is doing well. Blood pressures are well controlled. MMODL / IJN: [id number] /
[2017-11-29] MEDS: CHOLECALCIFEROL 1,000 UNIT TAB PO SCH (09:26)
[2017-11-29] MEDS: amLODIPine 10 MG TAB PO SCH (09:27)
[2017-11-29] MEDS: glipiZIDE 5 MG TAB PO SCH (09:27)
[2017-11-29] MEDS: ISOSORBIDE MONONITRATE ER 30 MG TAB.ER.24H PO SCH (09:27)
[2017-11-29] MEDS: ATORVASTATIN 10 MG TAB PO SCH (09:31)
[2017-11-29 12:10] LABS: Glucose,Whole Blood 118 mg/dL (75-99)
[2017-11-29] MEDS: ASPIRIN 81 MG PO SCH (12:14)
[2017-11-29] MEDS ORDERED: SODIUM CHLORIDE 0.9% 1,000 ML IV SCH (12:45)
[2017-11-29] MEDS ORDERED: ceFAZolin 1,000 MG in SODIUM CHLORIDE 0.9% IRRIGATIO 250 ML IRRIGATION ONE (13:00)
[2017-11-29] MEDS ORDERED: ceFAZolin IN SWFI 2 GM/20 ML SYRINGE IVP ONE (13:00)
--- NOTE | 2017-11-29 13:08 | P.PN ---
Subjective Patient was admitted secondary to nausea vomiting which was believed secondary to gastritis. Her nausea vomiting improved but patient ended up being hypoglycemic yesterday and bradycardic beta scar was discontinued patient was given multiple doses of atropine and cardiology valid the patient patient apparently had multiple syncopal episodes in the past in the recommending pacemaker placement which will be done on . Patient is feeling better today and no other symptoms at this time. Constitutional: Denied any fatigue denied any fever. Cardio vascular: denied any chest pain, palpitations Gastrointestinal denied any nausea vomiting Pulmonary: Denied any shortness of breath cough Neurologic denied any new focal deficits Objective - Vital Signs Vital signs: Vital Signs Temp 97.4 F L 11/29/17 08:00 Pulse 62 11/29/17 12:00 Resp 18 11/29/17 12:00 BP 111/55 11/29/17 12:00 Pulse Ox 97 11/29/17 12:00 Intake & Output 11/28/17 11/29/17 11/29/17 18:59 06:59 18:59 Intake Total 370 1050 Balance 370 1050 Weight 65.6 kg 65.8 kg Intake: IV 400 Dextrose 5% in Water 1, 400 000 ml @ 50 mls/hr IV . Q20H [facility] Rx#:[id number] Amount of Fluid Infused ( 250 ml) Intake, IV Titration 300 Amount Sodium Chloride 0.9% 1, 300 000 ml @ 75 mls/hr IV . [id number] [facility] Rx#:[id number] Oral 120 350 Other: Voiding Method Toilet # Voids 2 - Exam PHYSICAL EXAMINATION: GENERAL: The patient is alert and oriented x3, not in any acute distress. Well developed, well nourished. HEENT: Pupils are round and equally reacting to light. EOMI. No scleral icterus. No conjunctival pallor. Normocephalic, atraumatic. No pharyngeal erythema. No thyromegaly. CARDIOVASCULAR: S1 and S2 present. No murmurs, rubs, or gallops. PULMONARY: Chest is clear to auscultation, no wheezing or crackles. ABDOMEN: Soft, nontender, nondistended, normoactive bowel sounds. No palpable organomegaly. MUSCULOSKELETAL: No joint swelling or deformity. EXTREMITIES: No cyanosis, clubbing, or pedal edema. NEUROLOGICAL: Gross neurological examination did not reveal any focal deficits. SKIN: No rashes. - Labs CBC & Chem 7: 11/27/17 19:09 11/29/17 06:07 Labs: Abnormal Lab Results - Last 24 Hours (Table) 11/28/17 11/29/17 11/29/17 Range/Units 20:50 06:07 06:20 Sodium 133 L (137-145) mmol/L Glucose 107 H (74-99) mg/dL POC Glucose (mg/dL) 103 H 112 H (75-99) mg/dL 11/29/17 Range/Units 11:27 Sodium (137-145) mmol/L Glucose (74-99) mg/dL POC Glucose (mg/dL) 118 H (75-99) mg/dL Assessment and Plan Plan: -Severe symptomatic bradycardia with sinus pauses: Beta scar was discontinued patient is going for pacemaker placement. -Hypoglycemia: Oral hypoglycemic agents will be discontinued patient's D5 will be discontinued and patient will be started on normal saline her blood sugars have come up now. -Nausea vomiting along with diffuse abdominal pain: Probably related to gastritis patient is on IV Protonix patient's diet will be advanced -History of coronary artery disease, rule out acute coronary syndromes Hyperlipidemia Hypertension: Patient had elevated blood pressure at home secondary to nausea and amlodipine will be continued -Mild hyperkalemia because of nausea vomiting and lisinopril lisinopril is being held. -Hyponatremia mild secondary to intravascular well in the patient patient will be started on gentle hydration. -Hypothyroidism -Gastroesophageal reflux disease
[2017-11-29] MEDS: SODIUM CHLORIDE 0.9% 1,000 ML IV SCH (13:43)
[2017-11-29 16:50] LABS: Glucose,Whole Blood 74 mg/dL (75-99)
[2017-11-29] MEDS: PANTOPRAZOLE 40 MG TABLET PO SCH (18:36)
[2017-11-29] MEDS: MIRTAZAPINE 15 MG TAB PO SCH (19:51)
[2017-11-29 20:40] LABS: Glucose,Whole Blood 242 mg/dL (75-99)
[2017-11-30 02:53] LABS: Glucose,Whole Blood 95 mg/dL (75-99)
[2017-11-30 06:36] LABS: Glucose,Whole Blood 102 mg/dL (75-99)
[2017-11-30] MEDS: LEVOTHYROXINE 50 MCG TAB PO SCH (06:44)
[2017-11-30] MEDS: PANTOPRAZOLE 40 MG TABLET PO SCH ×2 (06:44→17:07)
[2017-11-30] MEDS: ATORVASTATIN 10 MG TAB PO SCH (08:11)
[2017-11-30] MEDS: ISOSORBIDE MONONITRATE ER 30 MG TAB.ER.24H PO SCH (08:11)
[2017-11-30] MEDS: CHOLECALCIFEROL 1,000 UNIT TAB PO SCH (08:11)
[2017-11-30] MEDS: amLODIPine 5 MG TAB PO SCH (08:11)
[2017-11-30] MEDS: ASPIRIN 81 MG PO SCH (08:11)
--- NOTE | 2017-11-30 10:31 | P.PN ---
Subjective Progress Note Date: 11/30/17 Principal diagnosis: Syncope This is an 82-year-old female with history of coronary artery disease and prior PCI, hypertension, hyperlipidemia, [id number] diabetes, who presented to the hospital with symptoms of dizziness and near syncope, episodes of nausea vomiting and abdominal discomfort. Her EKG showed sinus rhythm without any ST-T wave changes. Troponins were negative. Patient did have a noted 4 second possible for which she received atropine. She has been remaining in normal sinus rhythm, sinus bradycardia. Dr. Mcdaniel had a discussion with the patient regarding the need for implantation of a permanent pacemaker. She discussed this with her daughter and yesterday made the decision that she would proceed with pacemaker implantation. This will be performed tomorrow by Dr. Self. An echocardiogram with Doppler study was performed which revealed an ejection fraction of 55-60%, moderate TR. TSH level was normal at 2.9. Objective - Vital Signs Vital signs: Vital Signs Temp 97.4 F L 11/30/17 08:00 Pulse 95 11/30/17 08:00 Resp 17 11/30/17 08:00 BP 148/64 11/30/17 08:00 Pulse Ox 97 11/30/17 08:00 Intake & Output 11/29/17 11/30/17 11/30/17 18:59 06:59 18:59 Intake Total 478 800 360 Balance 478 800 360 Weight 66.5 kg Intake: IV 600 Sodium Chloride 0.9% 1, 600 000 ml @ 75 mls/hr IV . [id number] [facility] Rx#:[id number] Intake, IV Titration 200 Amount Sodium Chloride 0.9% 1, 200 000 ml @ 75 mls/hr IV . [id number] [facility] Rx#:[id number] Oral 478 360 Other: Voiding Method Toilet # Voids 2 1 - Exam PHYSICAL EXAMINATION: HEENT: Head is atraumatic, normocephalic. Pupils equal, round. Neck is supple. There is no elevated jugular venous pressure. HEART EXAMINATION: Heart S1 and S2 systolic murmur is heard. CHEST EXAMINATION: Lungs are clear to auscultation and precussion. No chest wall tenderness is noted on palpation or with deep breathing. ABDOMEN: Soft, nontender. Bowel sounds are heard. No organomegaly noted. EXTREMITIES: 2+ peripheral pulses with no evidence of peripheral edema and no calf tenderness noted. NEUROLOGIC patient is awake, alert and oriented -3. . - Labs CBC & Chem 7: 11/27/17 19:09 11/29/17 06:07 Labs: Abnormal Lab Results - Last 24 Hours (Table) 11/29/17 11/29/17 11/29/17 Range/Units 11:27 16:32 20:37 POC Glucose (mg/dL) 118 H 74 L 242 H (75-99) mg/dL 11/30/17 Range/Units 06:35 POC Glucose (mg/dL) 102 H (75-99) mg/dL Assessment and Plan Plan: Assessment and plan #1 symptoms of dizziness with near-syncope. Evidence of 4 second pause and significant bradycardia. Patient will be scheduled to undergo implantation of a permanent pacemaker tomorrow by Dr. Funk. The risks and the benefits were explained to the patient in detail. #2 known history of coronary artery disease with prior PCI #3 hyperlipidemia #4 Hypertension #5 Hypothyroidism, TSH normal #6 GERD Plan Patient will be scheduled for implantation of a permanent pacemaker tomorrow morning by Dr. Self. We will Continue to follow. DNP note has been reviewed, I agree with a documented findings and plan of care. Patient was seen and examined.
[2017-11-30 11:33] LABS: Glucose,Whole Blood 121 mg/dL (75-99)
--- NOTE | 2017-11-30 12:55 | P.PN ---
Subjective Patient was admitted secondary to nausea vomiting which was believed secondary to gastritis. Her nausea vomiting improved but patient ended up being hypoglycemic yesterday and bradycardic beta scar was discontinued patient was given multiple doses of atropine and cardiology valid the patient patient apparently had multiple syncopal episodes in the past in the recommending pacemaker placement which will be done on . Patient is feeling better today and no other symptoms at this time. 11/30/2017 No overnight events patient is clinically doing well Constitutional: Denied any fatigue denied any fever. Cardio vascular: denied any chest pain, palpitations Gastrointestinal denied any nausea vomiting Pulmonary: Denied any shortness of breath cough Neurologic denied any new focal deficits Objective - Vital Signs Vital signs: Vital Signs Temp 97.4 F L 11/30/17 08:00 Pulse 83 11/30/17 12:00 Resp 18 11/30/17 12:00 BP 137/51 11/30/17 12:00 Pulse Ox 96 11/30/17 12:00 Intake & Output 11/29/17 11/30/17 11/30/17 18:59 06:59 18:59 Intake Total 478 800 360 Balance 478 800 360 Weight 66.5 kg Intake: IV 600 Sodium Chloride 0.9% 1, 600 000 ml @ 75 mls/hr IV . [id number] [facility] Rx#:[id number] Intake, IV Titration 200 Amount Sodium Chloride 0.9% 1, 200 000 ml @ 75 mls/hr IV . [id number] [facility] Rx#:[id number] Oral 478 360 Other: Voiding Method Toilet # Voids 2 1 - Exam PHYSICAL EXAMINATION: GENERAL: The patient is alert and oriented x3, not in any acute distress. Well developed, well nourished. HEENT: Pupils are round and equally reacting to light. EOMI. No scleral icterus. No conjunctival pallor. Normocephalic, atraumatic. No pharyngeal erythema. No thyromegaly. CARDIOVASCULAR: S1 and S2 present. No murmurs, rubs, or gallops. PULMONARY: Chest is clear to auscultation, no wheezing or crackles. ABDOMEN: Soft, nontender, nondistended, normoactive bowel sounds. No palpable organomegaly. MUSCULOSKELETAL: No joint swelling or deformity. EXTREMITIES: No cyanosis, clubbing, or pedal edema. NEUROLOGICAL: Gross neurological examination did not reveal any focal deficits. SKIN: No rashes. - Labs CBC & Chem 7: 11/27/17 19:09 11/29/17 06:07 Labs: Abnormal Lab Results - Last 24 Hours (Table) 11/29/17 11/29/17 11/30/17 Range/Units 16:32 20:37 06:35 POC Glucose (mg/dL) 74 L 242 H 102 H (75-99) mg/dL 11/30/17 Range/Units 11:17 POC Glucose (mg/dL) 121 H (75-99) mg/dL Assessment and Plan Plan: -Severe symptomatic bradycardia with sinus pauses: Beta scar was discontinued patient is going for pacemaker placement. -Hypoglycemia: Improved, although oral hypoglycemic agents were discontinued yesterday. -Nausea vomiting along with diffuse abdominal pain: Probably related to gastritis patient is on IV Protonix patient's diet will be advanced -History of coronary artery disease, rule out acute coronary syndromes Hyperlipidemia Hypertension: Patient had elevated blood pressure at home secondary to nausea and amlodipine will be continued -Mild hyperkalemia because of nausea vomiting and lisinopril lisinopril is being held. -Hyponatremia mild secondary to intravascular well in the patient patient will be started on gentle hydration. -Hypothyroidism -Gastroesophageal reflux disease
[2017-11-30] MEDS: SODIUM CHLORIDE 0.9% 1,000 ML IV SCH ×2 (14:52→17:07)
[2017-11-30 16:48] LABS: Glucose,Whole Blood 106 mg/dL (75-99)
[2017-11-30] MEDS: MIRTAZAPINE 15 MG TAB PO SCH (20:01)
[2017-11-30 20:49] LABS: Glucose,Whole Blood 171 mg/dL (75-99)
[2017-12-01 02:27] LABS: Glucose,Whole Blood 146 mg/dL (75-99)
[2017-12-01] MEDS: ALPRAZolam 0.25 MG TAB PO PRN ×2 (05:37→20:54)
[2017-12-01] MEDS: LEVOTHYROXINE 50 MCG TAB PO SCH (05:57)
[2017-12-01] MEDS: SODIUM CHLORIDE 0.9% 1,000 ML IV SCH ×2 (05:57→17:07)
[2017-12-01] MEDS: PANTOPRAZOLE 40 MG TABLET PO SCH ×2 (05:58→16:45)
[2017-12-01] MEDS: ATORVASTATIN 10 MG TAB PO SCH (05:58)
[2017-12-01] MEDS: ASPIRIN 81 MG PO SCH (05:58)
[2017-12-01] MEDS: amLODIPine 5 MG TAB PO SCH (05:58)
[2017-12-01] MEDS: ISOSORBIDE MONONITRATE ER 30 MG TAB.ER.24H PO SCH (05:58)
[2017-12-01 06:14] LABS: Glucose,Whole Blood 130 mg/dL (75-99)
[2017-12-01 06:24] LABS: HCT 33.2 % (34.0-46.0); HGB 11.5 gm/dL (11.4-16.0); MCH 30.9 pg (25.0-35.0); MCHC 34.8 g/dL (31.0-37.0); MCV 88.9 fL (80.0-100.0); Mean Platelet Volume 7.2; Platelet Count 272 k/uL (150-450); RBC 3.73 m/uL (3.80-5.40); RDW 13.7 % (11.5-15.5); WBC 7.6 k/uL (3.8-10.6)
[2017-12-01 06:38] LABS: Calcium 9.6 mg/dL (8.4-10.2); Potassium 4.5 mmol/L (3.5-5.1)
[2017-12-01] MEDS ORDERED: ceFAZolin IN SWFI 2 GM/20 ML SYRINGE IVP ONE (07:00)
[2017-12-01] MEDS ORDERED: ceFAZolin 1,000 MG in SODIUM CHLORIDE 0.9% IRRIGATIO 250 ML IRRIGATION ONE (07:00)
[2017-12-01] MEDS ORDERED: SODIUM CHLORIDE 0.9% 250 ML IV ONE (07:14)
[2017-12-01] MEDS ORDERED: IV FLUID CONTINUATION 950 ML IV ONE (07:14)
[2017-12-01] MEDS ORDERED: MIDAZOLAM 2 MG/2 ML VIAL ONE (07:23)
[2017-12-01] MEDS ORDERED: ACETAMINOPHEN TAB 325 MG TAB PO PRN (07:25)
[2017-12-01] MEDS ORDERED: HYDROcodone/APAP 5-325MG 1 EACH TAB PO PRN (07:25)
[2017-12-01] MEDS ORDERED: MIDAZOLAM 2 MG/2 ML VIAL IV ONE (07:26)
[2017-12-01] MEDS ORDERED: fentaNYL (PF) 50 MCG/ML 2 ML AMP ONE (07:34)
[2017-12-01] MEDS: fentaNYL (PF) 50 MCG/ML 2 ML AMP IV ONE ×3 (07:36→08:34)
[2017-12-01] MEDS ORDERED: LIDOCAINE 1% INJ 10MG/ML (20 ML MDV) SQ ONE (07:37)
[2017-12-01] MEDS: LIDOCAINE 1% INJ 10MG/ML (20 ML MDV) SQ ONE ×2 (07:45→07:51)
[2017-12-01] MEDS ORDERED: ACETAMINOPHEN IV (For NPO) 1,000 MG in EMPTY BAG 1 BAG IVPB ONE (08:00)
--- NOTE | 2017-12-01 08:30 | P.PCN ---
Preoperative Diagnosis: Patient underwent EP procedure under conscious sedation/moderate sedation, monitoring of the level of consciousness and physiologic parameters including but not limited to vital signs and oxygenation. Patient tolerated the procedure well without any acute complications. Start time: 735 Stop time: 82
--- NOTE | 2017-12-01 09:13 | CE ---
CARDIAC ELECTROPHYSIOLOGY REPORT An 82-year-old female presenting with syncope. She had an episode of sudden sinus bradycardia and she was awake at this time and she felt the symptoms and they were very similar to what she felt at home. She was lightheaded and dizzy, even lying in bed. Dual-chamber pacemaker was advised by Dr. Archer. The patient was brought to the EP lab in a fasting state. Written informed consent was obtained prior to the procedure. The left shoulder area was prepped and draped as per protocol and 1% lidocaine was used for local anesthesia. A 4 cm incision was made parallel to the deltopectoral groove, about 1.5 cm medial to it. The incision was carried down to the level of the pectoralis muscle. A subfascial pocket was made. Hemostasis was assured. The left axillary vein was accessed at 2 separate points under fluoroscopy and via appropriately-sized introducer sheaths 2 leads were positioned in the right heart. The atrial lead was a 45 cm, model #4574, serial #[id number]. P-waves 2.3 mV, pacing impedance 635 ohms, pacing threshold 0.6 V at 0.5 milliseconds. Ten volt test was negative. The RV lead was 58 cm, model #4074, serial #[id number]. R-waves 8.6 mV, pacing impedance of 1331 ohms. Ten volt test was negative. Pacing threshold 0.6 V at 0.5 milliseconds. Both leads were secured to the underlying pectoralis fascia using 2 nonabsorbable sutures. Pocket was irrigated with antibiotic solution. Leads were connected to the generator ([employer]a model #A2DR01, serial #[id number]). The leads and generator were then placed in the subfascial pocket. The wound was closed in 3 layers and dressed per protocol. RESULTS: Successful dual chamber pacemaker implantation for symptomatic sick sinus syndrome with syncope and presyncope. The patient tolerated the procedure well without any acute complications. MMODL / IJN: [id number] /
[2017-12-01] MEDS: CHOLECALCIFEROL 1,000 UNIT TAB PO SCH (11:39)
[2017-12-01 11:47] LABS: Glucose,Whole Blood 149 mg/dL (75-99)
[2017-12-01] MEDS: ceFAZolin IN SWFI 2 GM/20 ML SYRINGE IVP SCH ×2 (14:04→18:32)
[2017-12-01 15:11] LABS: Hemoglobin A1C 6.6 % (4.0-6.0)
[2017-12-01 15:53] LABS: Glucose,Whole Blood 126 mg/dL (75-99)
--- NOTE | 2017-12-01 18:25 | PN ---
PROGRESS NOTE DATE OF SERVICE: 12/01/2017 PRESENTING COMPLAINT: Syncope. INTERVAL HISTORY: The patient admitted with nausea, vomiting, found to have gastritis, also is having syncopal episodes, found to have sick sinus syndrome for which the patient earlier today got a pacemaker. Lying in bed, arm in a sling. Family members at the bedside. Comfortable. Appetite is not the greatest, otherwise comfortable. REVIEW OF SYSTEMS: Done for constitutional, cardiovascular, GI, pulmonary; relevant findings as above. CURRENT MEDICATIONS: Reviewed that include IV Ancef. EXAMINATION: Temperature 98, pulse 94, respirations 16, blood pressure 122/53 pulse ox 97% on room air. GENERAL APPEARANCE: Lying in bed, comfortable. EYES: Pupils equal. Conjunctivae normal. HEENT: External appearance of nose and ears normal. Oral cavity normal. NECK: JVD not raised. Mass not palpable. RESPIRATORY: Effort normal. LUNGS: Fair air entry. CARDIOVASCULAR: First and second sounds normal. No edema. ABDOMEN: Soft, nontender. Liver and spleen not palpable. No mass palpable. PSYCHIATRY: Alert and oriented x3. Mood and affect normal. CHEST WALL: Dressing over the pacemaker site. Left arm in a sling. INVESTIGATIONS: White count 7.6, hemoglobin 11.5. Potassium 4.5. ASSESSMENT: 1. Sick sinus syndrome causing recurrent episodes of syncope leading to a dual-chamber pacemaker. 2. Gastritis causing nausea, vomiting. 3. Gastroesophageal reflux disease. 4. Essential hypertension. 5. Hyperlipidemia. 6. Bilateral primary osteoarthritis of multiple joints. 7. Coronary artery disease with prior history of stent. 8. Hypothyroid. 9. Diabetes mellitus type 2 on oral hypoglycemic. PLAN: Patient encouraged to be out of bed and encouraged to walk. Otherwise, patient doing well. Questions were answered. MMODL / IJN: [id number] /
[2017-12-01 20:49] LABS: Glucose,Whole Blood 148 mg/dL (75-99)
[2017-12-01] MEDS: MIRTAZAPINE 15 MG TAB PO SCH (20:59)
[2017-12-02] MEDS: ceFAZolin IN SWFI 2 GM/20 ML SYRINGE IVP SCH ×2 (01:14→06:39)
[2017-12-02] MEDS: ACETAMINOPHEN TAB 325 MG TAB PO PRN ×2 (01:26→14:25)
[2017-12-02 02:10] LABS: Glucose,Whole Blood 143 mg/dL (75-99)
[2017-12-02 06:19] LABS: Glucose,Whole Blood 129 mg/dL (75-99)
[2017-12-02] MEDS: PANTOPRAZOLE 40 MG TABLET PO SCH (06:39)
[2017-12-02] MEDS: SODIUM CHLORIDE 0.9% 1,000 ML IV SCH (06:39)
[2017-12-02] MEDS: LEVOTHYROXINE 50 MCG TAB PO SCH (06:39)
[2017-12-02] MEDS ORDERED: PSYLLIUM HUSK 100% 6 GM PACKET PO PRN (08:08)
[2017-12-02] MEDS: ATORVASTATIN 10 MG TAB PO SCH (09:03)
[2017-12-02] MEDS: ISOSORBIDE MONONITRATE ER 30 MG TAB.ER.24H PO SCH (09:03)
[2017-12-02] MEDS: CHOLECALCIFEROL 1,000 UNIT TAB PO SCH (09:03)
[2017-12-02] MEDS: amLODIPine 5 MG TAB PO SCH (09:03)
[2017-12-02] MEDS: ASPIRIN 81 MG PO SCH (09:04)
--- NOTE | 2017-12-02 09:39 | XR ---
EXAMINATION TYPE: XR chest 2V DATE OF EXAM: 12/02/2017 COMPARISON: 11/27/2017 TECHNIQUE: PA and lateral views submitted. HISTORY: Lead placement check FINDINGS: The lungs are clear and there is no pneumothorax, pleural effusion, or focal pneumonia. Double lead pacemaker seen. Proximal lead overlying the right atrium and distal lead overlying the right ventric le. Arthropathy of the shoulders. No overt failure. Hypertrophic change and postsurgical change invol ving the vertebral column. IMPRESSION: 1. Double lead pacemaker appears in good position with no sizable pneumothorax..
[2017-12-02 11:22] VITALS: BP 143/63; PULSE 84; RESP 16; TEMP 98
[2017-12-02 12:35] LABS: Glucose,Whole Blood 119 mg/dL (75-99)
--- NOTE | 2017-12-02 12:39 | P.PN ---
Subjective Progress Note Date: 12/02/17 This is a pleasant 82-year-old female patient who presented to the hospital with syncope. Follows with Dr. Mcdaniel in the office. During this admission she was found to have episode of sudden sinus bradycardia with a 4 second positive at which time she felt very lightheaded and dizzy and very similar to how she felt at home prior to admission. She subsequently underwent dual-chamber pacemaker implantation by Dr. Self yesterday. Chest x-ray this morning showed appropriate lead placement. Pacemaker interrogation showed normal functioning device with normal device measurements. Upon examination, she is resting comfortably in bed. She has a sling on her left arm. She denies any complaints of dizziness or lightheadedness she has no shortness of breath or chest discomfort. Incisional pain is well controlled. Objective - Vital Signs Vital signs: Vital Signs Temp 98.0 F 12/02/17 11:21 Pulse 84 12/02/17 11:22 Resp 16 12/02/17 11:22 BP 143/63 12/02/17 11:21 Pulse Ox 96 12/02/17 11:21 Intake & Output 12/01/17 12/02/17 12/02/17 18:59 06:59 18:59 Intake Total 119 755 0930 Output Total 300 200 300 Balance 185 -100 720 Weight 66.3 kg Intake: IV 125 Intake, IV Titration 900 Amount Sodium Chloride 0.9% 1, 900 000 ml @ 75 mls/hr IV . [id number] [facility] Rx#:[id number] Oral 360 100 120 Output: Urine 300 200 300 Other: Voiding Method Toilet Toilet Toilet # Voids 1 1 1 - Exam PHYSICAL EXAMINATION: HEENT: Head is atraumatic, normocephalic. Pupils equal, round. Neck is supple. There is no elevated jugular venous pressure. HEART EXAMINATION: Heart sounds regular, S1 and S2 normal. No murmur or gallop heard. CHEST EXAMINATION: Lungs are clear to auscultation and precussion. No chest wall tenderness is noted on palpation or with deep breathing. LIC incision with the dressing dry and intact site soft without evidence of hematoma or ecchymosis. ABDOMEN: Soft, nontender. Bowel sounds are heard. No organomegaly noted. EXTREMITIES: 2+ peripheral pulses with no evidence of peripheral edema and no calf tenderness noted. NEUROLOGIC patient is awake, alert and oriented x3. . - Labs CBC & Chem 7: 12/01/17 05:55 12/01/17 05:55 Labs: Abnormal Lab Results - Last 24 Hours (Table) 12/01/17 12/01/17 12/01/17 Range/Units 05:55 15:41 20:46 POC Glucose (mg/dL) 126 H 148 H (75-99) mg/dL Hemoglobin A1c 6.6 H (4.0-6.0) % 12/02/17 12/02/17 Range/Units 02:07 06:17 POC Glucose (mg/dL) 143 H 129 H (75-99) mg/dL Hemoglobin A1c (4.0-6.0) % Assessment and Plan Assessment: #1 symptomatic sinus bradycardia with 4 second positive, status post dual- chamber pacemaker implantation #2 history of CAD with prior PCI #3 hyperlipidemia #4 hypertension #5 hypothyroidism, normal TSH #6 GERD Plan: From cardiology's perspective, patient may be discharged home today. She will follow up in the device clinic next week and see Dr. Archer in the office the following week. I discussed in detail left arm restrictions, site care and importance of regular follow-up. The above dictated assessment and findings were discussed with signing physician. The impression and plan of care have been directed as dictated. Gabby Velazquez, Nurse Practitioner, acting as scribe for signing physician.
[2017-12-02 13:45] VITALS: BMI 28.5
--- NOTE | 2017-12-02 20:29 | DS ---
DISCHARGE SUMMARY DATE OF ADMISSION: 11/29/2017. DATE OF DISCHARGE: 12/02/2017 FINAL DIAGNOSES: 1. Sick sinus syndrome causing recurrent episodes of syncope leading to dual-chamber pacemaker placement. 2. Chronic gastritis causing nausea. 3. Gastroesophageal reflux disease. 4. Essential hypertension. 5. Hyperlipidemia. 6. Bilateral primary osteoarthritis in multiple joints. 7. Coronary artery disease with prior history of stent. 8. Hypothyroidism. 9. Diabetes mellitus, type 2, on oral hypoglycemic. CONSULTATIONS: 1. Dr. Alexis Archer from Cardiology. 2. Dr. Jame Self from Electrophysiology. HOSPITAL COURSE: This patient was feeling well, with episodes of near-syncope. Dr. Self felt the patient was having sick sinus syndrome. Patient did get a dual-chamber permanent pacemaker. Appetite is getting better. PHYSICAL EXAMINATION: Lungs are clear. Left arm in a sling. PSYCH: Alert and oriented x3. DISCHARGE MEDICATIONS: 1. Imdur 30 mg p.o. daily. 2. Glucotrol XL 7.5 p.o. with breakfast. 3. Aspirin 81 mg p.o. daily. 4. Xanax 0.25 p.o. t.i.d. p.r.n. 5. Synthroid 50 mcg p.o. daily. 6. Vitamin D3 2000 units p.o. daily. 7. Ultram 50 mg q.6 p.r.n. 8. Lipitor 10 mg p.o. daily. 9. Remeron 15 mg p.o. at bedtime. 10.Tylenol 650 mg q.6 p.r.n. 11.Prilosec 20 mg with breakfast. 12.Metamucil 6 grams p.o. daily p.r.n. 13.Norvasc 5 mg p.o. daily. The patient's Lopressor and lisinopril were discontinued, the latter because of hyperkalemia. FOLLOWUP: 1. At the pacemaker device clinic as scheduled by Cardiology. 2. Follow up with Dr. Renetta Archer on 12/16/2017. 3. Follow up with Dr. Ojeda on 12/08/2017. 4. Post-pacemaker orders as per Cardiology. MMODL / IJN: [id number] /
== END 2017-12-02 14:49 | disposition home health service (06) | DRG 243 ==
LOC: EC 19:02 → 3OBS 22:31 → 6SEL 11-28 22:50 → OBSVTOIN 11-29 15:54 → 6SEL 12-02 14:50
PROVIDERS: ADMIT Hospitalist; ATTEND Hospitalist
PROC: 02H63JZ Insertion of Pacemaker Lead into Right Atrium, Percutaneous Approach (ICD-10-PCS; 2017-12-01)
PROC: 02HK3JZ Insertion of Pacemaker Lead into Right Ventricle, Percutaneous Approach (ICD-10-PCS; 2017-12-01)
PROC: 0JH606Z Insertion of Pacemaker, Dual Chamber into Chest Subcutaneous Tissue and Fascia, Open Approach (ICD-10-PCS; principal; 2017-12-01 07:15)
DX: I49.5 Sick sinus syndrome (principal); E87.1 Hypo-osmolality and hyponatremia; E11.649 Type 2 diabetes mellitus with hypoglycemia without coma; E87.5 Hyperkalemia; E03.9 Hypothyroidism, unspecified; E78.5 Hyperlipidemia, unspecified; F32.9 Major depressive disorder, single episode, unspecified; F41.9 Anxiety disorder, unspecified; I10 Essential (primary) hypertension; I25.10 Atherosclerotic heart disease of native coronary artery without angina pectoris; I25.2 Old myocardial infarction; K21.9 Gastro-esophageal reflux disease without esophagitis; K29.50 Unspecified chronic gastritis without bleeding; M15.9 Polyosteoarthritis, unspecified; R51 Headache; Z79.899 Other long term (current) drug therapy; Z79.84 Long term (current) use of oral hypoglycemic drugs; Z79.82 Long term (current) use of aspirin; Z88.5 Allergy status to narcotic agent; Z98.61 Coronary angioplasty status; Z90.49 Acquired absence of other specified parts of digestive tract; Z98.42 Cataract extraction status, left eye; Z98.41 Cataract extraction status, right eye
CPT/HCPCS: 33208; 36415; 70450; 71046; 76700; 80048; 80053; 80061; 82550; 82553; 83036; 83735; 84132; 84443; 84484; 85025; 85027; 85610; 85730; 93005; 93306; 96361; 96374; 99285

== ENCOUNTER 2018-02-14 18:37 | Emergency (ER) | payer MEDICARE ==
[2018-02-14 18:40] VITALS: RESP 18; TEMP 97.5
[2018-02-14] MEDS ORDERED: SODIUM CHLORIDE 0.9% 1,000 ML IV STA (18:45)
[2018-02-14] MEDS ORDERED: ONDANSETRON 4 MG/2 ML VIAL IVP STA (18:45)
[2018-02-14] MEDS ORDERED: PANTOPRAZOLE 40 MG/10 ML VIAL IVP STA (18:45)
[2018-02-14] MEDS ORDERED: SODIUM CHLORIDE 0.9% 500 ML IV STA (18:45)
[2018-02-14 19:05] LABS: Basophils % (A) 0 %; Eosinophils % (A) 0 %; HCT 37.4 % (34.0-46.0); HGB 12.6 gm/dL (11.4-16.0); Lymphocytes # (A) 1.5 k/uL (1.0-4.8); Lymphocytes % (A) 16 %; MCH 29.9 pg (25.0-35.0); MCHC 33.7 g/dL (31.0-37.0); MCV 88.5 fL (80.0-100.0); Mean Platelet Volume 7.1; Monocytes # (A) 0.3 k/uL (0-1.0); Monocytes % (A) 3 %; Neutrophils # (A) 7.5 k/uL (1.3-7.7); Neutrophils % (A) 80 %; Platelet Count 265 k/uL (150-450); RBC 4.22 m/uL (3.80-5.40); RDW 13.7 % (11.5-15.5); WBC 9.5 k/uL (3.8-10.6)
[2018-02-14 19:14] LABS: Creatine Kinase 90 U/L (30-135)
[2018-02-14 19:15] LABS: ALT 33 U/L (9-52); AST 29 U/L (14-36); Albumin 4.3 g/dL (3.5-5.0); Alkaline Phosphatase 90 U/L (38-126); Anion Gap 16 mmol/L; Blood Urea Nitrogen 15 mg/dL (7-17); Calcium 9.5 mg/dL (8.4-10.2); Carbon Dioxide 19 mmol/L (22-30); Chloride 97 mmol/L (98-107); Glucose 216 mg/dL (74-99); Lipase 73 U/L (23-300); Magnesium 1.7 mg/dL (1.6-2.3); Potassium 4.1 mmol/L (3.5-5.1); Sodium 132 mmol/L (137-145); Total Bilirubin 0.4 mg/dL (0.2-1.3); Total Protein 7.2 g/dL (6.3-8.2)
--- NOTE | 2018-02-14 19:20 | ED ---
General Adult HPI - General Chief complaint: GI Bleed Stated complaint: Nausea, VOmiting Time Seen by Provider: 02/14/18 18:43 Source: patient, EMS, RN notes reviewed, old records reviewed Mode of arrival: EMS Limitations: no limitations - History of Present Illness Initial comments: This is an 82-year-old female the ER for evaluation. Patient is lying ectopic. Medical history. Patient today comes in for evaluation of nausea vomiting not feeling well. No recent known sick contacts or travel history. Moving occasional abdominal pain. Mainly nausea vomiting. No diarrhea. Again no travel history no change in medications no fevers. - Related Data Home Medications Medication Instructions Recorded Confirmed Isosorbide Mononitrate [Imdur] 30 mg PO DAILY 01/10/14 02/14/18 glipiZIDE XL [Glucotrol XL] 7.5 mg PO AC-BRKFST 10/14/15 02/14/18 Aspirin EC [Ecotrin Low Dose] 81 mg PO DAILY 12/07/15 02/14/18 Levothyroxine Sodium [Synthroid] 50 mcg PO DAILY 04/15/16 02/14/18 Atorvastatin [Lipitor] 10 mg PO DAILY 11/27/17 02/14/18 Metoprolol Tartrate 25 mg PO BID 02/14/18 02/14/18 Ranitidine HCl [Zantac] 150 mg PO BID 02/14/18 02/14/18 Previous Rx's Medication Instructions Recorded amLODIPine [Norvasc] 5 mg PO DAILY #30 tab 12/02/17 Allergies Allergy/AdvReac Type Severity Reaction Status Date / Time codeine AdvReac Nausea & Verified 02/14/18 18:57 Vomiting Review of Systems ROS Statement: Those systems with pertinent positive or pertinent negative responses have been documented in the HPI. ROS Other: All systems not noted in ROS Statement are negative. Past Medical History Past Medical History: Chest Pain / Angina, Diabetes Mellitus, GERD/Reflux, Hyperlipidemia, Hypertension, Myocardial Infarction ([place]), Osteoarthritis (OA), Pneumonia, Thyroid Disorder Additional Past Medical History / Comment(s): carotid stenosis,sob w/activity, freq constipation,numbness and tingling thomas hands, pneumonia 4 yrs ago, gallstones, urinary leakage, uses a walker Last Myocardial Infarction Date:: 2003 History of Any Multi-Drug Resistant Organisms: None Reported Past Surgical History: Appendectomy, Back Surgery, Cholecystectomy, Heart Catheterization With Stent, Pacemaker, Tonsillectomy Additional Past Surgical History / Comment(s): thomas cataract, right carotid endarterectomy,2-12-16 LAP UMBILICAL HERNIA REPAIR AND CHOLEY Past Anesthesia/Blood Transfusion Reactions: Motion Sickness, Postoperative Nausea & Vomiting (PONV) Date of Last Stent Placement:: 2003 Past Psychological History: Anxiety, Depression Smoking Status: Never smoker Past Alcohol Use History: None Reported Past Drug Use History: None Reported - Past Family History Father Family Medical History: Liver Disease Additional Family Medical History / Comment(s): etoh, cirrhosis of the liver Mother Family Medical History: Diabetes Mellitus Additional Family Medical History / Comment(s): heart problems. Son(s) Family Medical History: Diabetes Mellitus General Exam Limitations: no limitations General appearance: alert, in no apparent distress Head exam: Present: atraumatic, normocephalic, normal inspection Eye exam: Present: normal appearance, PERRL, EOMI. Absent: scleral icterus, conjunctival injection, periorbital swelling ENT exam: Present: normal exam, mucous membranes moist Neck exam: Present: normal inspection. Absent: tenderness, meningismus, lymphadenopathy Respiratory exam: Present: normal lung sounds bilaterally. Absent: respiratory distress, wheezes, rales, rhonchi, stridor Cardiovascular Exam: Present: regular rate, normal rhythm, normal heart sounds. Absent: systolic murmur, diastolic murmur, rubs, gallop, clicks GI/Abdominal exam: Present: soft, normal bowel sounds. Absent: distended, tenderness, guarding, rebound, rigid Extremities exam: Present: normal inspection, full ROM, normal capillary refill. Absent: tenderness, pedal edema, joint swelling, calf tenderness Back exam: Present: normal inspection Neurological exam: Present: alert, oriented X3, CN II-XII intact Psychiatric exam: Present: normal affect, normal mood Skin exam: Present: warm, dry, intact, normal color. Absent: rash Course Vital Signs 02/14/18 02/14/18 02/14/18 18:38 19:00 20:06 Temperature 97.5 F L 97.5 F L Pulse Rate 96 84 75 Respiratory 18 18 18 Rate Blood Pressure 202/88 192/84 147/65 O2 Sat by Pulse 97 99 98 Oximetry 02/14/18 02/14/18 21:50 22:24 Temperature Pulse Rate 70 75 Respiratory 18 18 Rate Blood Pressure 142/65 162/74 O2 Sat by Pulse 96 97 Oximetry - Reevaluation(s) Reevaluation #1: Patient states her symptoms are resolved, feels much better. EKG Findings - EKG Comments: EKG Findings:: EKG shows normal sinus rhythm rate of 85, [place] 134, QRS 80, QTC 471 Medical Decision Making - Medical Decision Making 82 female the ER for evaluation of bowel pain with nausea vomiting. Symptoms completely resolved. Labwork normal, scans are normal patient can be discharged home - Lab Data Result diagrams: 02/14/18 18:43 02/14/18 18:43 Lab Results 02/14/18 02/14/18 02/14/18 Range/Units 18:43 18:43 18:43 WBC 9.5 (3.8-10.6) k/uL RBC 4.22 (3.80-5.40) m/uL Hgb 12.6 (11.4-16.0) gm/dL Hct 37.4 (34.0-46.0) % MCV 88.5 (80.0-100.0) fL MCH 29.9 (25.0-35.0) pg MCHC 33.7 (31.0-37.0) g/dL RDW 13.7 (11.5-15.5) % Plt Count 265 (150-450) k/uL Neutrophils % 80 % Lymphocytes % 16 % Monocytes % 3 % Eosinophils % 0 % Basophils % 0 % Neutrophils # 7.5 (1.3-7.7) k/uL Lymphocytes # 1.5 (1.0-4.8) k/uL Monocytes # 0.3 (0-1.0) k/uL Eosinophils # 0.0 (0-0.7) k/uL Basophils # 0.0 (0-0.2) k/uL PT (9.0-12.0) sec INR (<1.2) APTT (22.0-30.0) sec Sodium 132 L (137-145) mmol/L Potassium 4.1 (3.5-5.1) mmol/L Chloride 97 L (98-107) mmol/L Carbon Dioxide 19 L (22-30) mmol/L Anion Gap 16 mmol/L BUN 15 (7-17) mg/dL Creatinine 0.60 (0.52-1.04) mg/dL Est GFR (CKD-EPI)AfAm >90 (>60 ml/min/1.73 sqM) Est GFR (CKD-EPI)NonAf 85 (>60 ml/min/1.73 sqM) Glucose 216 H (74-99) mg/dL Calcium 9.5 (8.4-10.2) mg/dL Magnesium 1.7 (1.6-2.3) mg/dL Total Bilirubin 0.4 (0.2-1.3) mg/dL AST 29 (14-36) U/L ALT 33 (9-52) U/L Alkaline Phosphatase 90 (38-126) U/L Total Creatine Kinase 90 (30-135) U/L CK-MB (CK-2) 1.3 (0.0-2.4) ng/mL CK-MB (CK-2) Rel Index 1.4 Troponin I <0.012 (0.000-0.034) ng/mL Total Protein 7.2 (6.3-8.2) g/dL Albumin 4.3 (3.5-5.0) g/dL Lipase 73 (23-300) U/L 02/14/18 Range/Units 18:43 WBC (3.8-10.6) k/uL RBC (3.80-5.40) m/uL Hgb (11.4-16.0) gm/dL Hct (34.0-46.0) % MCV (80.0-100.0) fL MCH (25.0-35.0) pg MCHC (31.0-37.0) g/dL RDW (11.5-15.5) % Plt Count (150-450) k/uL Neutrophils % % Lymphocytes % % Monocytes % % Eosinophils % % Basophils % % Neutrophils # (1.3-7.7) k/uL Lymphocytes # (1.0-4.8) k/uL Monocytes # (0-1.0) k/uL Eosinophils # (0-0.7) k/uL Basophils # (0-0.2) k/uL PT 9.5 (9.0-12.0) sec INR 0.9 (<1.2) APTT 21.3 L (22.0-30.0) sec Sodium (137-145) mmol/L Potassium (3.5-5.1) mmol/L Chloride (98-107) mmol/L Carbon Dioxide (22-30) mmol/L Anion Gap mmol/L BUN (7-17) mg/dL Creatinine (0.52-1.04) mg/dL Est GFR (CKD-EPI)AfAm (>60 ml/min/1.73 sqM) Est GFR (CKD-EPI)NonAf (>60 ml/min/1.73 sqM) Glucose (74-99) mg/dL Calcium (8.4-10.2) mg/dL Magnesium (1.6-2.3) mg/dL Total Bilirubin (0.2-1.3) mg/dL AST (14-36) U/L ALT (9-52) U/L Alkaline Phosphatase (38-126) U/L Total Creatine Kinase (30-135) U/L CK-MB (CK-2) (0.0-2.4) ng/mL CK-MB (CK-2) Rel Index Troponin I (0.000-0.034) ng/mL Total Protein (6.3-8.2) g/dL Albumin (3.5-5.0) g/dL Lipase (23-300) U/L - Radiology Data Radiology results: report reviewed (CT abdomen pelvis x-ray KUB negative), image reviewed Disposition Clinical Impression: Vomiting, Nausea and vomiting Disposition: HOME SELF-CARE Condition: Good Instructions: Acute Nausea and Vomiting (ED) Is patient prescribed a controlled substance at d/c from ED?: No Referrals: Guzman Ojeda DO [Primary Care Provider] - 1-2 days
[2018-02-14 19:21] LABS: INR 0.9 (<1.2); Prothrombin Time 9.5 sec (9.0-12.0)
[2018-02-14 19:22] LABS: Partial Thromboplastin Time 21.3 sec (22.0-30.0)
[2018-02-14 19:27] LABS: Creatine Kinase MB 1.3 ng/mL (0.0-2.4); Troponin I <0.012 ng/mL (0.000-0.034)
--- NOTE | 2018-02-14 20:30 | XR ---
EXAMINATION TYPE: XR KUB DATE OF EXAM: 02/14/2018 COMPARISON: 04/15/2016 INDICATION: Abdomen pain nausea vomiting TECHNIQUE: Single view abdomen upright view FINDINGS: Nonspecific bowel gas is present. No suspicious air-fluid levels or differential air-fluid levels are present. No free air is present. There is pedicle screws and fixation rods L3-L5. Cholecystectomy clips are in the right upper quadran t. Psoas margins are normal. No organomegaly is present. IMPRESSION: 1. Nonspecific abdomen.
--- NOTE | 2018-02-14 21:25 | CT ---
EXAMINATION TYPE: CT abdomen pelvis w con DATE OF EXAM: 02/14/2018 COMPARISON: 12/08/2015 INDICATION: abdominal pain, nausea, vomiting, GI bleed DLP: 582.0 mGycm, Automated exposure control for dose reduction was used. CONTRAST: 100 mL of Isovue 300. Study performed without Oral Contrast TECHNIQUE: Axial images were obtained from above the diaphragm to the pubic rami in the axial plane a t 5 mm thick sections. Reconstructed images are reviewed on the computer in the coronal plane. FINDINGS: Limited CT sections are obtained the lung bases. The lung bases are clear. There is a moderate size hiatal hernia present. CT ABDOMEN: Liver: Normal Spleen: Normal Pancreas: Normal Adrenal glands: The adrenal glands are normal. Gallbladder: Surgically absent Kidneys: No masses are evident. No hydronephrosis is present. No cysts are present. Delayed images were obtained through the kidneys, which remain unremarkable. Aorta: Vascular calcification is within the aorta. Inferior vena cava: Normal. CT PELVIS: Loops of bowel within the abdomen and pelvis are normal. Scattered diverticuli are within the sig moid colon. A few additional diverticuli are within the colon. Appendix: Not identified. No suspicious tubular structures or inflammatory changes are evident. Urinary bladder: Tiny amount of air is present. Correlate with recent instrumentation. Genitourinary structures: Uterus is unremarkable. Adnexal regions are clear. Osseous structures: No suspicious lytic or sclerotic lesions. IMPRESSIONS: 1. Diverticulosis without acute diverticulitis. 2. Tiny amount of free air within the urinary bladder. Correlate with recent instrumentation such as catheterization. 3. Moderate size hiatal hernia.
[2018-02-14 22:39] VITALS: BP 162/74; PULSE 75
== END 2018-02-14 22:49 | disposition home or self-care (01) ==
LOC: EC 18:37
DX: R11.2 Nausea with vomiting, unspecified (principal); R10.9 Unspecified abdominal pain; E11.9 Type 2 diabetes mellitus without complications; K21.9 Gastro-esophageal reflux disease without esophagitis; E78.5 Hyperlipidemia, unspecified; I10 Essential (primary) hypertension; I25.2 Old myocardial infarction; E07.9 Disorder of thyroid, unspecified; Z79.82 Long term (current) use of aspirin; Z79.84 Long term (current) use of oral hypoglycemic drugs; Z79.899 Other long term (current) drug therapy; Z88.5 Allergy status to narcotic agent; Z90.49 Acquired absence of other specified parts of digestive tract; Z95.0 Presence of cardiac pacemaker; Z95.5 Presence of coronary angioplasty implant and graft
CPT/HCPCS: 36415; 93005; 80053; 82550; 82553; 83690; 83735; 84484; 85025; 85610; 85730; 74018; 74177; 99285; 96374; 96375; J2405; C9113; Q9967

== ENCOUNTER 2018-03-11 16:53 | Emergency (ER) | payer MEDICARE ==
[2018-03-11] MEDS ORDERED: SODIUM CHLORIDE 0.9% 1,000 ML IV STA (16:56)
--- NOTE | 2018-03-11 16:58 | ED ---
General Adult HPI - General Stated complaint: Chest pain, BRENNEN Time Seen by Provider: 03/11/18 16:55 Source: RN notes reviewed, old records reviewed - History of Present Illness Initial comments: This is an 82-year-old female the ER for evaluation. Patient does say for evaluation regarding nausea. Patient does admit to some anxiety. Occasional chest pain occasional abdominal pain. No recent travel history no sick contacts. Patient has no fevers, no change in medications. She states she takes Adderall but that was just wasn't helping today she was nauseous. EMS gave Zofran on arrival and states states that she does feel better now being in the hospital. No shortness of breath. No other significant complaints - Related Data Home Medications Medication Instructions Recorded Confirmed Isosorbide Mononitrate [Imdur] 30 mg PO DAILY 01/10/14 03/11/18 glipiZIDE XL [Glucotrol XL] 7.5 mg PO AC-BRKFST 10/14/15 03/11/18 Aspirin EC [Ecotrin Low Dose] 81 mg PO DAILY 12/07/15 03/11/18 Levothyroxine Sodium [Synthroid] 50 mcg PO DAILY 04/15/16 03/11/18 Atorvastatin [Lipitor] 10 mg PO DAILY 11/27/17 03/11/18 Metoprolol Tartrate 25 mg PO BID 02/14/18 03/11/18 Ranitidine HCl [Zantac] 150 mg PO BID 02/14/18 03/11/18 Previous Rx's Medication Instructions Recorded amLODIPine [Norvasc] 5 mg PO DAILY #30 tab 12/02/17 Allergies Allergy/AdvReac Type Severity Reaction Status Date / Time codeine AdvReac Nausea & Verified 03/11/18 17:19 Vomiting Review of Systems ROS Statement: Those systems with pertinent positive or pertinent negative responses have been documented in the HPI. ROS Other: All systems not noted in ROS Statement are negative. Past Medical History Past Medical History: Chest Pain / Angina, Diabetes Mellitus, GERD/Reflux, Hyperlipidemia, Hypertension, Myocardial Infarction ([place]), Osteoarthritis ([place]), Pneumonia, Thyroid Disorder Additional Past Medical History / Comment(s): carotid stenosis,sob w/activity, freq constipation,numbness and tingling thomas hands, pneumonia 4 yrs ago, gallstones, urinary leakage, uses a walker Last Myocardial Infarction Date:: 2003 History of Any Multi-Drug Resistant Organisms: None Reported Past Surgical History: Appendectomy, Back Surgery, Cholecystectomy, Heart Catheterization With Stent, Pacemaker, Tonsillectomy Additional Past Surgical History / Comment(s): thomas cataract, right carotid endarterectomy,2--16 LAP UMBILICAL HERNIA REPAIR AND CHOLEY Past Anesthesia/Blood Transfusion Reactions: Motion Sickness, Postoperative Nausea & Vomiting (PONV) Date of Last Stent Placement:: 2003 Past Psychological History: Anxiety, Depression Smoking Status: Never smoker Past Alcohol Use History: None Reported Past Drug Use History: None Reported - Past Family History Father Family Medical History: Liver Disease Additional Family Medical History / Comment(s): etoh, cirrhosis of the liver Mother Family Medical History: Diabetes Mellitus Additional Family Medical History / Comment(s): heart problems. Son(s) Family Medical History: Diabetes Mellitus General Exam General appearance: alert, in no apparent distress, anxious Head exam: Present: atraumatic, normocephalic, normal inspection Eye exam: Present: normal appearance, PERRL, EOMI. Absent: scleral icterus, conjunctival injection, periorbital swelling ENT exam: Present: normal exam, mucous membranes moist Neck exam: Present: normal inspection. Absent: tenderness, meningismus, lymphadenopathy Respiratory exam: Present: normal lung sounds bilaterally. Absent: respiratory distress, wheezes, rales, rhonchi, stridor Cardiovascular Exam: Present: regular rate, normal rhythm, normal heart sounds. Absent: systolic murmur, diastolic murmur, rubs, gallop, clicks GI/Abdominal exam: Present: soft, normal bowel sounds. Absent: distended, tenderness, guarding, rebound, rigid Extremities exam: Present: normal inspection, full ROM, normal capillary refill. Absent: tenderness, pedal edema, joint swelling, calf tenderness Back exam: Present: normal inspection Neurological exam: Present: alert, oriented X3, CN II-XII intact Psychiatric exam: Present: normal affect, normal mood Skin exam: Present: warm, dry, intact, normal color. Absent: rash Course Vital Signs 03/11/18 03/11/18 03/11/18 16:56 17:03 18:02 Temperature 97.7 F Pulse Rate 69 Respiratory 20 18 Rate Blood Pressure 145/60 O2 Sat by Pulse 97 Oximetry 06/30/18 06/30/18 19:10 20:34 Temperature 97.7 F 98.2 F Pulse Rate 77 75 Respiratory 18 16 Rate Blood Pressure 149/58 150/69 O2 Sat by Pulse 97 97 Oximetry - Reevaluation(s) Reevaluation #1: 03/11/18 20:57 Medical record is reviewed and patient does have prior ER visit for similar complaint Reevaluation #2: 03/11/18 20:57 Patient does admit to anxiety, feeling better currently and can be discharged home EKG Findings - EKG Comments: EKG Findings:: EKG shows normal sinus rhythm rate of 79, [place] 164, QRS 80, QTC 444 Medical Decision Making - Medical Decision Making 82 female the ER for evasive chest pain, mild anxiety nausea and abdominal pain. Chest x-ray CT EKG and labwork is normal. Patient can be discharged home - Lab Data Result diagrams: 03/11/18 17:05 03/11/18 17:05 Lab Results 03/11/18 03/11/18 03/11/18 Range/Units 17:05 17:05 17:05 WBC 8.2 (3.8-10.6) k/uL RBC 4.36 (3.80-5.40) m/uL Hgb 12.6 (11.4-16.0) gm/dL Hct 37.2 (34.0-46.0) % MCV 85.5 (80.0-100.0) fL MCH 28.9 (25.0-35.0) pg MCHC 33.8 (31.0-37.0) g/dL RDW 13.7 (11.5-15.5) % Plt Count 257 (150-450) k/uL Neutrophils % 70 % Lymphocytes % 23 % Monocytes % 5 % Eosinophils % 1 % Basophils % 0 % Neutrophils # 5.7 (1.3-7.7) k/uL Lymphocytes # 1.9 (1.0-4.8) k/uL Monocytes # 0.4 (0-1.0) k/uL Eosinophils # 0.1 (0-0.7) k/uL Basophils # 0.0 (0-0.2) k/uL PT (9.0-12.0) sec INR (<1.2) APTT (22.0-30.0) sec D-Dimer (<0.60) mg/L FEU Sodium 128 L (137-145) mmol/L Potassium 4.7 (3.5-5.1) mmol/L Chloride 94 L (98-107) mmol/L Carbon Dioxide 19 L (22-30) mmol/L Anion Gap 15 mmol/L BUN 22 H (7-17) mg/dL Creatinine 0.70 (0.52-1.04) mg/dL Est GFR (CKD-EPI)AfAm >90 (>60 ml/min/1.73 sqM) Est GFR (CKD-EPI)NonAf 80 (>60 ml/min/1.73 sqM) Glucose 199 H (74-99) mg/dL Calcium 9.2 (8.4-10.2) mg/dL Magnesium 1.8 (1.6-2.3) mg/dL Total Bilirubin 0.2 (0.2-1.3) mg/dL AST 24 (14-36) U/L ALT 30 (9-52) U/L Alkaline Phosphatase 79 (38-126) U/L Total Creatine Kinase 72 (30-135) U/L CK-MB (CK-2) 1.1 (0.0-2.4) ng/mL CK-MB (CK-2) Rel Index 1.5 Troponin I <0.012 (0.000-0.034) ng/mL NT-Pro-B Natriuret Pep pg/mL Total Protein 7.0 (6.3-8.2) g/dL Albumin 4.2 (3.5-5.0) g/dL Lipase 124 (23-300) U/L 03/11/18 03/11/18 Range/Units 17:05 17:05 WBC (3.8-10.6) k/uL RBC (3.80-5.40) m/uL Hgb (11.4-16.0) gm/dL Hct (34.0-46.0) % MCV (80.0-100.0) fL MCH (25.0-35.0) pg MCHC (31.0-37.0) g/dL RDW (11.5-15.5) % Plt Count (150-450) k/uL Neutrophils % % Lymphocytes % % Monocytes % % Eosinophils % % Basophils % % Neutrophils # (1.3-7.7) k/uL Lymphocytes # (1.0-4.8) k/uL Monocytes # (0-1.0) k/uL Eosinophils # (0-0.7) k/uL Basophils # (0-0.2) k/uL PT 9.3 (9.0-12.0) sec INR 0.9 (<1.2) APTT 22.8 (22.0-30.0) sec D-Dimer 5.17 H (<0.60) mg/L FEU Sodium (137-145) mmol/L Potassium (3.5-5.1) mmol/L Chloride (98-107) mmol/L Carbon Dioxide (22-30) mmol/L Anion Gap mmol/L BUN (7-17) mg/dL Creatinine (0.52-1.04) mg/dL Est GFR (CKD-EPI)AfAm (>60 ml/min/1.73 sqM) Est GFR (CKD-EPI)NonAf (>60 ml/min/1.73 sqM) Glucose (74-99) mg/dL Calcium (8.4-10.2) mg/dL Magnesium (1.6-2.3) mg/dL Total Bilirubin (0.2-1.3) mg/dL AST (14-36) U/L ALT (9-52) U/L Alkaline Phosphatase (38-126) U/L Total Creatine Kinase (30-135) U/L CK-MB (CK-2) (0.0-2.4) ng/mL CK-MB (CK-2) Rel Index Troponin I (0.000-0.034) ng/mL NT-Pro-B Natriuret Pep 102 pg/mL Total Protein (6.3-8.2) g/dL Albumin (3.5-5.0) g/dL Lipase (23-300) U/L - Radiology Data Radiology results: report reviewed (Chest x-ray CT chest negative), image reviewed Disposition Clinical Impression: Gastritis, Nausea and vomiting, Anxiety Disposition: TRANSFER TO PSYCH HOSP/UNIT Condition: Good Instructions: Gastritis (ED) Is patient prescribed a controlled substance at d/c from ED?: No Referrals: Guzman Ojeda DO [Primary Care Provider] - 1-2 days
[2018-03-11 17:31] LABS: Basophils % (A) 0 %; Eosinophils # (A) 0.1 k/uL (0-0.7); Eosinophils % (A) 1 %; HCT 37.2 % (34.0-46.0); HGB 12.6 gm/dL (11.4-16.0); Lymphocytes # (A) 1.9 k/uL (1.0-4.8); Lymphocytes % (A) 23 %; MCH 28.9 pg (25.0-35.0); MCHC 33.8 g/dL (31.0-37.0); MCV 85.5 fL (80.0-100.0); Mean Platelet Volume 7.8; Monocytes # (A) 0.4 k/uL (0-1.0); Monocytes % (A) 5 %; Neutrophils # (A) 5.7 k/uL (1.3-7.7); Neutrophils % (A) 70 %; Platelet Count 257 k/uL (150-450); RBC 4.36 m/uL (3.80-5.40); RDW 13.7 % (11.5-15.5); WBC 8.2 k/uL (3.8-10.6)
[2018-03-11 17:42] LABS: ALT 30 U/L (9-52); AST 24 U/L (14-36); Albumin 4.2 g/dL (3.5-5.0); Alkaline Phosphatase 79 U/L (38-126); Anion Gap 15 mmol/L; Blood Urea Nitrogen 22 mg/dL (7-17); Calcium 9.2 mg/dL (8.4-10.2); Carbon Dioxide 19 mmol/L (22-30); Chloride 94 mmol/L (98-107); Glucose 199 mg/dL (74-99); Lipase 124 U/L (23-300); Magnesium 1.8 mg/dL (1.6-2.3); Potassium 4.7 mmol/L (3.5-5.1); Sodium 128 mmol/L (137-145); Total Bilirubin 0.2 mg/dL (0.2-1.3)
[2018-03-11 17:48] LABS: INR 0.9 (<1.2)
[2018-03-11 17:49] LABS: Partial Thromboplastin Time 22.8 sec (22.0-30.0); Prothrombin Time 9.3 sec (9.0-12.0)
[2018-03-11 17:53] LABS: Creatine Kinase 72 U/L (30-135)
--- NOTE | 2018-03-11 17:57 | XR ---
EXAMINATION TYPE: XR chest 2V DATE OF EXAM: 03/11/2018 COMPARISON: NONE HISTORY: chest pain TECHNIQUE: Frontal and lateral views of the chest are obtained. FINDINGS: There is no focal air space opacity, pleural effusion, or pneumothorax seen. The cardiac silhouette size is within normal limits. There is a hiatal hernia. Pacemaker is stable. The osseous structures are intact. IMPRESSION: No acute cardiopulmonary process.
[2018-03-11 17:58] LABS: D-Dimer 5.17 mg/L FEU (<0.60)
[2018-03-11 18:05] LABS: Creatine Kinase MB 1.1 ng/mL (0.0-2.4); Troponin I <0.012 ng/mL (0.000-0.034)
--- NOTE | 2018-03-11 20:10 | CT ---
EXAMINATION TYPE: CT angio chest DATE OF EXAM: 03/11/2018 COMPARISON: Prior CT 11/29/2013. HISTORY: Chest pain, difficulty breathing and hypertension. CT DLP: 208.2 mGycm Automated exposure control for dose reduction was used. CONTRAST: CTA scan of the thorax is performed with IV Contrast, patient injected with 60ml mL of Isovue 370, pu lmonary embolism protocol. MIP images are created and reviewed. 3D reconstructed images are created on an independent workstation and reviewed. FINDINGS: LUNGS: The lungs are grossly clear, there is no concerning parenchymal mass or nodule identified. T here is no pleural effusion or pneumothorax seen. The tracheobronchial tree is patent. AORTA: No additional significant abnormality is seen. MEDIASTINUM: There is satisfactory enhancement of the pulmonary artery and its branches, there is no CT evidence for pulmonary embolism. There are no greater than 1 cm hilar or mediastinal lymph nodes. No pericardial effusion is seen. OTHER: Partial intrathoracic stomach, hiatal hernia noted. Pacemaker and leads are present within th e right atrium and ventricle. Patient is post cholecystectomy. IMPRESSION: NO EVIDENT PULMONARY EMBOLISM. HIATAL HERNIA DESCRIBED, POSTOP CHANGES.
[2018-03-11] MEDS ORDERED: ONDANSETRON 4 MG/2 ML VIAL IVP STA (20:31)
[2018-03-11 20:37] VITALS: RESP 16
[2018-03-11] MEDS ORDERED: PANTOPRAZOLE 40 MG/10 ML VIAL IVP STA (20:55)
[2018-03-11] MEDS ORDERED: LORazepam 2 MG/ML INJ IV STA (20:55)
[2018-03-11 21:28] VITALS: BP 175/75; PULSE 77; TEMP 98.4
== END 2018-03-11 21:26 | disposition home or self-care (01) ==
LOC: EC 16:53
DX: K29.70 Gastritis, unspecified, without bleeding (principal); F41.9 Anxiety disorder, unspecified; R07.9 Chest pain, unspecified; E11.9 Type 2 diabetes mellitus without complications; K21.9 Gastro-esophageal reflux disease without esophagitis; E78.5 Hyperlipidemia, unspecified; I10 Essential (primary) hypertension; I25.2 Old myocardial infarction; E07.9 Disorder of thyroid, unspecified; Z79.82 Long term (current) use of aspirin; Z79.899 Other long term (current) drug therapy; Z88.5 Allergy status to narcotic agent; Z95.0 Presence of cardiac pacemaker; Z95.1 Presence of aortocoronary bypass graft; Z90.49 Acquired absence of other specified parts of digestive tract; Z53.8 Procedure and treatment not carried out for other reasons
CPT/HCPCS: 36415; 93005; 85379; 83880; 80053; 82550; 82553; 83690; 83735; 84484; 85025; 85610; 85730; 71046; 71275; 99285; 96374; 96375; 96361 ×4; J2405; C9113; Q9967

== ENCOUNTER 2018-03-11 22:41 | Inpatient (IN) | payer MEDICARE ==
[2018-03-12 00:40] LABS: Appearance,Urine Clear (Clear); Bilirubin,Urine Negative (Negative); Blood,Urine Negative (Negative); Color,Urine Colorless; Glucose,Urine (UA) 1+ (Negative); Ketones,Urine Negative (Negative); Leukocyte Esterase,Urine Small (Negative); Nitrite,Urine Negative (Negative); Protein,Urine Negative (Negative); RBC,Urine 1 /hpf (0-5); Squamous Epithelial Cell,Urine <1 /hpf (0-4); Urobilinogen,Urine <2.0 mg/dL (<2.0); WBC,Urine 5 /hpf (0-5)
[2018-03-12 00:46] LABS: Amphetamine Screen,Urine Not Detected (NotDetected); Barbiturate Screen,Urine Not Detected (NotDetected); Benzodiazepines Screen,Urine Not Detected (NotDetected); Cocaine Screen,Urine Not Detected (NotDetected); Methadone Screen, Urine Not Detected (NotDetected); Opiate Screen,Urine Not Detected (NotDetected); Oxycodone Screen, Urine Not Detected (NotDetected); Phencyclidine Screen,Urine Not Detected (NotDetected); Tricyclic Antidepressant,Urine Not Detected (NotDetected); Urn Cannabinoid Scrn Not Detected (NotDetected)
--- NOTE | 2018-03-12 00:46 | ED ---
General Adult HPI - General Chief complaint: Nausea/Vomiting/Diarrhea Stated complaint: Nausea/Vomiting Time Seen by Provider: 03/11/18 23:11 Source: patient Mode of arrival: EMS Limitations: no limitations - History of Present Illness Initial comments: Patient is an 82-year-old female presenting for abdominal pain. She states that the pain started around 1 PM yesterday and is diffuse, achy and constant. She denies any chest pain or shortness of breath but states that she was seen here within the last 4-5 hours and she was given the option of staying or going and she elected to be discharged. However, on the way home, she had one episode of vomiting were black substance came up and Police Department advised her to come back to [facility] department. She continues to admit to the abdominal pain but denies any chest pain or shortness breath at this moment. She also denies any urinary symptoms as well as fevers/chills. - Related Data Home Medications Medication Instructions Recorded Confirmed Isosorbide Mononitrate [Imdur] 30 mg PO DAILY 01/10/14 03/11/18 glipiZIDE XL [Glucotrol XL] 7.5 mg PO [id number] 10/14/15 03/11/18 Aspirin EC [Ecotrin Low Dose] 81 mg PO DAILY 12/07/15 03/11/18 Levothyroxine Sodium [Synthroid] 50 mcg PO DAILY 04/15/16 03/11/18 Atorvastatin [Lipitor] 10 mg PO DAILY 11/27/17 03/11/18 Metoprolol Tartrate 25 mg PO BID 02/14/18 03/11/18 Ranitidine HCl [Zantac] 150 mg PO BID 02/14/18 03/11/18 Previous Rx's Medication Instructions Recorded amLODIPine [Norvasc] 5 mg PO DAILY #30 tab 12/02/17 Allergies Allergy/AdvReac Type Severity Reaction Status Date / Time codeine AdvReac Nausea & Verified 03/11/18 23:14 Vomiting Review of Systems ROS Statement: Those systems with pertinent positive or pertinent negative responses have been documented in the HPI. Constitutional: Negative for chills, fatigue and fever. HENT: Negative for congestion. Respiratory: Negative for chest tightness, shortness of breath and wheezing. Negative for cough Cardiovascular: Negative for chest pain and palpitations. Gastrointestinal: Positive for abdominal pain. Negative for abdominal distention , diarrhea, positive for nausea and vomiting. Genitourinary: Negative for dysuria. Musculoskeletal: Negative for back pain, neck pain and neck stiffness. Skin: Negative for color change. Neurological: Negative for dizziness, speech difficulty, weakness and light- headedness. Psychiatric/Behavioral: Negative for agitation and confusion. The patient is not nervous/anxious. ROS Other: All systems not noted in ROS Statement are negative. Past Medical History Past Medical History: Chest Pain / Angina, Diabetes Mellitus, GERD/Reflux, Hyperlipidemia, Hypertension, Myocardial Infarction (OK), Osteoarthritis (OA), Pneumonia, Thyroid Disorder Additional Past Medical History / Comment(s): carotid stenosis,sob w/activity, freq constipation,numbness and tingling thomas hands, pneumonia 4 yrs ago, gallstones, urinary leakage, uses a walker Last Myocardial Infarction Date:: 2003 History of Any Multi-Drug Resistant Organisms: None Reported Past Surgical History: Appendectomy, Back Surgery, Cholecystectomy, Heart Catheterization With Stent, Pacemaker, Tonsillectomy Additional Past Surgical History / Comment(s): thomas cataract, right carotid endarterectomy,2-12-16 LAP UMBILICAL HERNIA REPAIR AND CHOLEY Past Anesthesia/Blood Transfusion Reactions: Motion Sickness, Postoperative Nausea & Vomiting (PONV) Date of Last Stent Placement:: 2003 Past Psychological History: Anxiety, Depression Smoking Status: Never smoker Past Alcohol Use History: None Reported Past Drug Use History: None Reported - Past Family History Father Family Medical History: Liver Disease Additional Family Medical History / Comment(s): etoh, cirrhosis of the liver Mother Family Medical History: Diabetes Mellitus Additional Family Medical History / Comment(s): heart problems. Son(s) Family Medical History: Diabetes Mellitus General Exam - General Exam Comments Initial Comments: Constitutional: Pt is oriented to person, place, and time. Pt appears well- developed and well-nourished. No distress. HENT: Head: Normocephalic and atraumatic. Eyes: EOM are normal. Neck: Normal range of motion. Neck supple. Cardiovascular: Normal rate, regular rhythm, S1 normal, S2 normal and normal heart sounds. Exam reveals no gallop and no friction rub. No murmur heard. Pulmonary/Chest: Effort normal and breath sounds normal. No tachypnea and no bradypnea. No respiratory distress. No wheezes or rales noted. Abdominal: Soft. Bowel sounds are normal. Pt exhibits no shifting dullness, no distension, no pulsatile liver, no fluid wave, no abdominal bruit and no ascites. There is generalized tenderness tenderness. There is no rigidity, no rebound, no guarding, no tenderness at McBurney's point and negative Lara's sign. Musculoskeletal: Normal range of motion. Neurological: Pt is alert and oriented to person, place, and time. No cranial nerve deficit. Skin: Skin is warm and dry. No rash noted. Pt is not diaphoretic. No erythema. No pallor. Psychiatric: Pt has a normal mood and affect. Pt behavior is normal. Thought content normal. Limitations: no limitations Course Vital Signs 03/11/18 23:01 Temperature 97.8 F Pulse Rate 76 Respiratory 17 Rate Blood Pressure 189/89 O2 Sat by Pulse 98 Oximetry Medical Decision Making - Medical Decision Making Based on chart review, laboratory studies were completed at 1700 on March 11 and therefore these labs were not redone. Those laboratory studies showed that there is no leukocytosis but d-dimer was elevated at 5.[address] which [address] a [address] PE study being completed which is negative for pulmonary embolism. There was significant electrolyte derangements including hyponatremia of 128. However, there is no evidence of transaminitis or pancreatitis and cardiac evaluation was negative and the troponin was negative. Urine sample was not able to be obtained at that time and therefore it was ordered here in the emergency department. Additionally, abdominal CT has been ordered for the patient is pending at time of disposition. Nonetheless, it is felt that the patient is a risk to be discharged home as there is concern for upper GI bleed as she is reports vomiting black substance. Because of this, the patient will be placed in observation for continued treatment. CT abdomen will be followed up by night ED physician prior to the patient being transferred to the floor. - Lab Data Lab Results 03/12/18 Range/Units 00:23 Urine Color Colorless Urine Appearance Clear (Clear) Urine pH 7.0 (5.0-8.0) Ur Specific [place] 1.020 (1.001-1.035) Urine Protein Negative (Negative) Urine Glucose (UA) 1+ H (Negative) Urine Ketones Negative (Negative) Urine Blood Negative (Negative) Urine Nitrite Negative (Negative) Urine Bilirubin Negative (Negative) Urine Urobilinogen <2.0 (<2.0) mg/dL Ur Leukocyte Esterase Small H (Negative) Urine RBC 1 (0-5) /hpf Urine WBC 5 (0-5) /hpf Ur Squamous Epith Cells <1 (0-4) /hpf Urine Opiates Screen Not Detected (NotDetected) Ur Oxycodone Screen Not Detected (NotDetected) Urine Methadone Screen Not Detected (NotDetected) Ur Propoxyphene Screen Not Detected (NotDetected) Ur Barbiturates Screen Not Detected (NotDetected) U Tricyclic Antidepress Not Detected (NotDetected) Ur Phencyclidine Scrn Not Detected (NotDetected) Ur Amphetamines Screen Not Detected (NotDetected) U Methamphetamines Scrn Not Detected (NotDetected) U Benzodiazepines Scrn Not Detected (NotDetected) Urine Cocaine Screen Not Detected (NotDetected) U Marijuana (THC) Screen Not Detected (NotDetected) Disposition Clinical Impression: Chest pain, Nausea and vomiting, Abdominal pain Disposition: ADMITTED IP TO THIS [facility] Condition: Fair Instructions: Acute Nausea and Vomiting (ED) Referrals: Guzman Ojeda DO [Primary Care Provider] - 1-2 days Decision to Admit Reason: Admit from EC Decision Date: 03/12/18 Decision Time: 01:12
[2018-03-12] MEDS ORDERED: ONDANSETRON 4 MG/2 ML VIAL IVP PRN (01:13)
[2018-03-12] MEDS ORDERED: NALOXONE 0.4 MG/ML 1 ML VIAL IV PRN (01:13)
--- NOTE | 2018-03-12 02:03 | CT ---
EXAMINATION TYPE: CT abdomen pelvis wo con DATE OF EXAM: 03/12/2018 COMPARISON: 02/14/2018 HISTORY: abd pain, nausea, vomiting CT DLP: 550.10 mGycm Automated exposure control for dose reduction was used. TECHNIQUE: Helical acquisition of images was performed from the lung bases through the pelvis. FINDINGS: There is hiatal hernia. Lung bases are clear of consolidation. There is no pleural effusion. There are clips from cholecystectomy. Liver shows no focal defect. Spleen appears normal. There is no pancreatic mass. The bile ducts are not dilated. There is no adrenal mass. Kidneys have normal size. There is no hydronephrosis. Ureters are not dilat ed. There is no retroperitoneal adenopathy. Abdominal aorta is atheromatous. There is no ascites. Bladder distends smoothly with contrast from the previous CT scan. There is no evidence of a pelvic mass. Ut erus is anteverted. There is posterior fusion surgery from L3 to L5. Vertebra have normal alignment. I see no focal bone destruction. There are multiple sigmoid diverticula. Appendix is not definitely s een. There is no sign of appendicitis. There is no intestinal wall thickening. There are no dilated l oops. There is no ascites. There is no sign of free air. IMPRESSION: HIATAL HERNIA. SPONDYLOTIC CHANGES IN THE LUMBAR SPINE. NO EVIDENCE OF RENAL STONE OR OBSTRUCTION. AT HEROSCLEROTIC VASCULAR DISEASE. NO EVIDENCE OF ACUTE ABDOMEN AND PELVIS. MODERATE OSTEOARTHRITIS IN B OTH HIP JOINTS NOTED.
[2018-03-12] MEDS: SODIUM CHLORIDE 0.9% 1,000 ML IV SCH ×3 (03:32→21:51)
[2018-03-12 05:45] VITALS: BMI 25.9
[2018-03-12 07:43] LABS: Glucose,Whole Blood 73 mg/dL (75-99)
[2018-03-12] MEDS ORDERED: ALPRAZolam 0.25 MG TAB PO PRN (11:43)
[2018-03-12] MEDS ORDERED: LACTULOSE 20 GM/30 ML CUP PO PRN (11:43)
[2018-03-12] MEDS ORDERED: MELATONIN 3 MG TABLET PO PRN (11:43)
[2018-03-12] MEDS ORDERED: CALCIUM CARBONATE 500 MG CHEWABLE PO PRN (11:43)
[2018-03-12] MEDS ORDERED: MAGNESIUM HYDROXIDE 2,400 MG/10 ML CUP PO PRN (11:43)
[2018-03-12 12:27] LABS: Glucose,Whole Blood 86 mg/dL (75-99)
[2018-03-12] MEDS: METOPROLOL TARTRATE 25 MG TAB PO SCH ×2 (12:40→21:51)
[2018-03-12] MEDS: LEVOTHYROXINE 50 MCG TAB PO SCH (12:40)
[2018-03-12] MEDS: PANTOPRAZOLE 40 MG TABLET PO SCH (12:40)
[2018-03-12] MEDS: amLODIPine 5 MG TAB PO SCH (12:40)
[2018-03-12] MEDS: ATORVASTATIN 10 MG TAB PO SCH (12:40)
[2018-03-12] MEDS: ISOSORBIDE MONONITRATE ER 30 MG TAB.ER.24H PO SCH (12:40)
[2018-03-12] MEDS: INSULIN ASPART 100 UNIT/ML 1 ML 10 ML VIAL SQ SCH ×2 (12:41→17:45)
[2018-03-12 17:11] LABS: Basophils % (A) 1 %; Eosinophils # (A) 0.1 k/uL (0-0.7); Eosinophils % (A) 2 %; HCT 37.4 % (34.0-46.0); HGB 12.6 gm/dL (11.4-16.0); Lymphocytes # (A) 2.2 k/uL (1.0-4.8); Lymphocytes % (A) 29 %; MCH 29.2 pg (25.0-35.0); MCHC 33.7 g/dL (31.0-37.0); MCV 86.8 fL (80.0-100.0); Mean Platelet Volume 7.3; Monocytes # (A) 0.6 k/uL (0-1.0); Monocytes % (A) 8 %; Neutrophils # (A) 4.5 k/uL (1.3-7.7); Neutrophils % (A) 60 %; Platelet Count 268 k/uL (150-450); RBC 4.31 m/uL (3.80-5.40); RDW 13.9 % (11.5-15.5); WBC 7.6 k/uL (3.8-10.6)
[2018-03-12 17:21] LABS: Calcium 9.3 mg/dL (8.4-10.2); Total Bilirubin 0.5 mg/dL (0.2-1.3); Total Protein 6.7 g/dL (6.3-8.2)
--- NOTE | 2018-03-12 21:37 | HP ---
HISTORY AND PHYSICAL DATE OF SERVICE: March 12, 2018. PRESENTING COMPLAINT: Abdominal pain. HISTORY OF PRESENTING COMPLAINT: This is a very pleasant, 82 -year-old patient of Dr. Ojeda. Chronic stable medical conditions include hypertension, hyperlipidemia, osteoarthritis, coronary artery disease with stent, hypothyroid, diabetes. In November of this year, for sick sinus syndrome, patient did get a permanent pacemaker. The patient has a chronic history of chronic gastritis and GERD. The patient presents with increasing abdominal pain and presented to the ER. The patient was seen by . The patient stated that she has been having abdominal pain on and off for a long time and nausea has continued to bother her. She denies having had any EGD. The patient's reflux symptoms also bother her. She was then discharged from the ER, in the taxi then patient started throwing up and she was brought back to the ER. Patient normally has a bowel movement every 3 days. Denies any fever and chills. Still having some lower abdominal pain which she states she has had for quite some time. Just feels weak and tired. Also vomitus was noted to be a bit dark in color, though no obvious blood was noted. The patient does not remember having any dark stools. Because of concern for GI bleed, the patient is being admitted. The patient is on aspirin. REVIEW OF SYSTEMS: CONSTITUTIONAL: Tired. HEENT none. RESPIRATORY none. CARDIOVASCULAR none. GASTROINTESTINAL as above. GENITOURINARY none. MUSCULOSKELETAL: Arthritic pain in joints. DERMATOLOGICAL and HEMATOLOGIC, LYMPHATICS: None. PSYCHIATRY none. NEUROLOGICAL none. PAST MEDICAL HISTORY: Diabetes mellitus type 2, GERD, hyperlipidemia, hypertension, osteoarthritis, hypothyroid, chronic constipation, numbness and tingling in both the hands, gallstones, urinary incontinence, uses a walker, coronary artery disease with stent. PAST SURGICAL HISTORY: Appendectomy, back surgery, cholecystectomy, cardiac cath with stent, tonsillectomy, bilateral cataract surgery, right carotid endarterectomy, laparoscopic umbilical hernia repair and cholecystectomy, permanent pacemaker. PSYCH HISTORY: Some anxiety and depression. SOCIAL HISTORY: Lives at [facility]. Does have a walker. No smoking. No alcohol. FAMILY HISTORY: Of cirrhosis. HOME MEDICATIONS: 1. Glucotrol XL 7.5 with breakfast. 2. Norvasc 5 mg p.o. daily. 3. Zantac 150 mg p.o. b.i.d. 4. Metoprolol 25 mg b.i.d. 5. Synthroid 50 mcg a day. 6. Imdur 30 mg a day. 7. Lipitor 10 mg a day. 8. Aspirin 81 mg p.o. daily. ALLERGY: CODEINE causing nausea and vomiting. PHYSICAL EXAMINATION: VITAL SIGNS: Vital signs on presentation, temperature 97.8, pulse 64, respiration 18, blood pressure 136/63, pulse ox 97% on room air. GENERAL APPEARANCE: Average built, sitting up, tired appearing. EYES: Pupils equal. Conjunctivae normal. HEENT: External appearance of nose and ears normal. Oral cavity normal. NECK: JVD not raised. Mass not palpable. RESPIRATORY: Effort normal. LUNGS: Clear. CARDIOVASCULAR: 1st and 2nd sounds normal. No edema. ABDOMEN: Soft. Abdomen diffuse mild tenderness. No guarding or rigidity. Liver and spleen not palpable. LYMPHATICS: No lymph nose palpable in the neck and axilla. PSYCHIATRY: Alert and oriented x3. Mood and affect normal. NEUROLOGICAL: Pupils equal. Cranial nerves grossly intact. Power and sensation grossly intact. MUSCULOSKELETAL: Evidence of osteoarthritis especially in the hands and knees. INVESTIGATIONS: White count 8.2, hemoglobin 12.6, potassium 4.7, BUN 22, creatinine 0.70. Chest CTA showed hiatal hernia and CT scan of the abdomen and pelvis shows spondylitic changes. ASSESSMENT: 1. This is a patient who has got chronic abdominal pain with acute abdominal pain with coffee-grounds emesis. The patient is on aspirin and patient may have severe gastroesophageal reflux disease, need to rule out a peptic ulcer disease. At high risk of bleeding again hence needs to be admitted for the same. 2. Permanent pacemaker for sick sinus syndrome. 3. Chronic gastritis. 4. Severe gastroesophageal reflux disease. 5. Essential hypertension. 6. Hyperlipidemia. 7. Primary osteoarthritis. 8. Coronary artery disease with history of stent. 9. Hypothyroidism. 10.Diabetes mellitus type 2 on oral hypoglycemics. PLAN: Patient is put on clear liquids. We will hold off Glucotrol. Do Accu-Cheks. The patient will be put on proton pump inhibitors. Gastroenterology is consulted with a view to endoscopy. Given IV fluids. Care was discussed with the patient. Questions were answered. Patient's aspirin has been held. Copy to Dr. Ojeda. MMODL / IJN: [id number] /
[2018-03-13] MEDS: LEVOTHYROXINE 50 MCG TAB PO SCH (06:13)
[2018-03-13 07:22] LABS: Glucose,Whole Blood 116 mg/dL (75-99)
[2018-03-13 08:23] LABS: Glucose,Whole Blood 98 mg/dL (75-99)
[2018-03-13] MEDS: INSULIN ASPART 100 UNIT/ML 1 ML 10 ML VIAL SQ SCH ×3 (08:28→17:27)
[2018-03-13] MEDS: ISOSORBIDE MONONITRATE ER 30 MG TAB.ER.24H PO SCH (08:29)
[2018-03-13] MEDS: PANTOPRAZOLE 40 MG TABLET PO SCH (08:29)
[2018-03-13] MEDS: SODIUM CHLORIDE 0.9% 1,000 ML IV SCH ×2 (08:29→17:27)
[2018-03-13] MEDS: ATORVASTATIN 10 MG TAB PO SCH (08:29)
[2018-03-13] MEDS: amLODIPine 5 MG TAB PO SCH (08:29)
[2018-03-13] MEDS: METOPROLOL TARTRATE 25 MG TAB PO SCH ×2 (08:29→20:40)
--- NOTE | 2018-03-13 14:48 | P.CN ---
Psychiatric Consult - . Consult date: 03/13/18 Consult:: Identification data: The patient is a 82-year-old female admitted to medicine service forthe evaluation and treatment of abdominal pain. During her assessments she admitted to having wishes. The hospitalist submitted a psychiatric consult to evaluate the suicidal thoughts. History of present illness: I reviewed the medical record and interviewed the patient. She denied that she has had thoughts of suicide. He stated that when nursing staff asked her questions they asked whether she had "suicidal thoughts or wishes" she answered to the positive. She stated that when she becomes severely ill she has a thought where she wishes that she were . She denied that the wishes had progressed to thinking about suicide or making plans to suicide. She talked about her multiple medical illnesses, her advancing age and her physical incapacity. She denied feeling sad, hopeless, helpless or worthless. She denied feelings of guilt, or self-reproach. She denied persistent insomnia. She described subjective tension and occasional irritability but denied persistent anxiety that interferes with his ability to function. Her primary care provider prescribes her Xanax for the anxiety. She stated that she takes the Xanax "occasionally" less than once per day. She complains that if she takes the medication more frequently and makes a week, tired and fatigued. She denied periods of anxiety that built up to crescendo suggestive of panic attacks. She denied obsessions or compulsions. She denied the use of alcohol or drugs. She denied psychotic symptoms such as auditory, visual or olfactory hallucinations, ideas reference etc. Past psychiatric history: She has a history of recurrent depressive disorder. She had at least 3 psychiatric hospitalizations and had been treated with multiple antidepressant medications. Her last depressive episode was "more than 20 years ago". 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 She denied a history of problems with alcohol or drugs. She is never been in a substance abuse treatment program. Family psychiatric/substance use history: Her had an alcohol use disorder and her daughter has a history of depression. She immigrated to [place] when she was 15 years old and does not know her extended family. Social history: Her family immigrated to [facility] and settled in [place]. She stated she is lived in [place] "off and on" for 50 years. Her 18 years ago. They were remarried for 47 years. She did not work outside of the home. They had 4 children. She has 6 grandchildren and 1 great grandchildren. She lived in several states that the [place] including [place] , [place], [place] and [place]. Her was an senior network engineer when the family moved to accommodate his career. Mental status examination: She presented as a casually groomed elderly female who was pleasant on approach. She made eye contact and attended the interview. She had no distinguishing features or prominent physical abnormalities. She had a blunted but bright facial expression. She is alert and oriented to person, place and time. She showed no abnormality of psychomotor activity. She had no abnormal movements. Her speech was spontaneous with normal rate, rhythm and volume. She had no articulation difficulties. Her affect was blunted but stable and appropriate. She denied suicidal ideation or wishes. She denied homicidal ideation. She denied such to depressive cognitions as hopelessness, helplessness and worthlessness. She did not express obsessions, ruminations, phobias, ideas reference, paranoid ideation or delusional thoughts. Her thinking was abstract and associations were coherent, logical and goal directed. She denied hallucinations and did not appear to be responding to internal stimuli. We completed the [facility] Orientation Memory and Concentration test. She showed poor effort during the assessment. Her total weighted error score was 12; a total weighted error score greater than 10 is suggestive of a dementia. She had difficulty naming the months of the year in reverse order and only recalled 2 elements of memory phrase "Abram Engle, [address] [place] [id number]". Impression: She is an elderly woman who has a history of recurrent major depressive disorder. She presented to [facility] for evaluation treatment of abdominal pain. During the assessment process she admitted to thoughts of . She denied suicidal ideation, plan or intent. She denied history of suicide attempts. She has had psychiatric hospitalizations in outpatient treatment for recurrent depressive disorder but her last episode of care was over 20 years ago. She is not currently at suicide risk and does not require one-to-one supervision. I am reluctant to diagnose a neurocognitive disorder because she showed poor effort during the cognitive screening tests. unspecified anxiety disorder, major depressive disorder recurrent in sustained remission, rule out cognitive impairment. Recommendation: There is no indication for psychiatric hospitalization. There is no indication for referral for outpatient mental health treatment. Discontinue one-to-one. Her primary care provider can reevaluate her cognitive status using the Mini-Mental state exam when she is more medically stable. The consult. 03/13/18 14:30
[2018-03-13] MEDS: ACETAMINOPHEN TAB 325 MG TAB PO PRN (19:46)
--- NOTE | 2018-03-13 22:25 | PN ---
PROGRESS NOTE DATE OF SERVICE: 03/13/2018. PRESENTING COMPLAINT: Abdominal pain. INTERVAL HISTORY: This patient presented with acute on chronic abdominal pain and coffee-ground emesis. The patient is on a clear liquid diet. Awaiting GI intervention. Patient's 2 sons are at the bedside. Otherwise patient is comfortable, a bit anxious. Seen by Psychiatry; not for any further intervention. REVIEW OF SYSTEMS: Done for constitutional, cardiovascular, GI, pulmonary; relevant findings as above. CURRENT MEDICATIONS: Reviewed. They include Protonix. PHYSICAL EXAMINATION: Temperature 98.3, pulse 66, respiration 19, blood pressure 120/65, pulse ox 96% on room air. GENERAL APPEARANCE: Lying in bed, awake. EYES: Pupils equal. Conjunctivae normal. HEENT: External appearance of nose and ears normal. Oral cavity normal. NECK: JVD not raised. Mass not palpable. RESPIRATORY: Effort normal. Lungs are clear. CARDIOVASCULAR: First and second sounds normal. No edema. ABDOMEN: Soft. Minimal tenderness. No guarding or rigidity. PSYCHIATRY: Alert and oriented x3. Mood and affect slightly anxious-appearing. INVESTIGATIONS: Hemoglobin 12.6, potassium 5. ASSESSMENT: 1. Acute on chronic abdominal pain; could be from gastritis. Cannot rule out peptic ulcer disease in the setting of coffee-ground emesis. 2. Permanent pacemaker for sick sinus syndrome. 3. Chronic gastritis. 4. Severe gastroesophageal reflux disease. 5. Essential hypertension. 6. Hyperlipidemia. 7. Primary osteoarthritis. 8. Coronary artery disease with history of stent. 9. Hypothyroidism. 10.Diabetes mellitus, type 2, on oral hypoglycemic. PLAN: Continue current medication and treatment plan. Patient is already on PPIs and IV fluids. Awaiting input from GI. Care was discussed with the 2 sons at the bedside. MMODL / IJN: [id number] /
[2018-03-13 22:49] VITALS: RESP 17
[2018-03-14] MEDS: LEVOTHYROXINE 50 MCG TAB PO SCH (05:35)
[2018-03-14] MEDS: SODIUM CHLORIDE 0.9% 1,000 ML IV SCH ×3 (05:35→19:47)
[2018-03-14 07:22] LABS: Glucose,Whole Blood 98 mg/dL (75-99)
[2018-03-14] MEDS: INSULIN ASPART 100 UNIT/ML 1 ML 10 ML VIAL SQ SCH ×3 (07:23→18:19)
[2018-03-14] MEDS: ACETAMINOPHEN TAB 325 MG TAB PO PRN ×2 (08:11→23:05)
[2018-03-14] MEDS: ATORVASTATIN 10 MG TAB PO SCH (08:12)
[2018-03-14] MEDS: ISOSORBIDE MONONITRATE ER 30 MG TAB.ER.24H PO SCH (08:12)
[2018-03-14] MEDS: PANTOPRAZOLE 40 MG TABLET PO SCH (08:12)
[2018-03-14] MEDS: amLODIPine 5 MG TAB PO SCH (08:12)
[2018-03-14] MEDS: METOPROLOL TARTRATE 25 MG TAB PO SCH ×2 (08:12→19:47)
[2018-03-14] MEDS ORDERED: PROPOFOL 10 MG/ML 20 ML VIAL IV ONE (15:32)
[2018-03-14] MEDS ORDERED: LIDOCAINE 1% INJ 10MG/ML (20 ML MDV) ONE (15:32)
[2018-03-14] MEDS ORDERED: IV FLUID CONTINUATION 1,000 ML IV ONE (15:32)
[2018-03-14 21:33] LABS: Glucose,Whole Blood 156 mg/dL (75-99)
--- NOTE | 2018-03-14 23:54 | PN ---
PROGRESS NOTE DATE OF SERVICE: 03/14/2018 PRESENTING COMPLAINT: Abdominal pain. INTERVAL HISTORY: This is a patient who presented with coffee-grounds emesis, did undergo an EGD. preliminary report shows Conrad's esophagus. Final report is pending. Otherwise, patient is stable. REVIEW OF SYSTEMS: Done for constitutional, cardiovascular, GI, pulmonary; relevant findings as above. CURRENT MEDICATIONS: Reviewed that include Protonix. EXAMINATION: Temperature 97.6, pulse 61, respirations 17, blood pressure 109/47, pulse ox 97% on room air. GENERAL: Lying in bed, comfortable. EYES: Pupils equal. Conjunctivae normal. HEENT: External nose and ears normal. Oral cavity normal. NECK: JVD not raised. Mass not palpable. RESPIRATORY: Effort normal. Lungs are clear. CARDIOVASCULAR: First and second sounds normal. No edema. ABDOMEN: Soft. Minimal tenderness. PSYCH: Alert and oriented x3. Mood and affect normal. INVESTIGATIONS: Formal EGD result is pending. ASSESSMENT: 1. Acute on chronic abdominal pain, probably gastritis and Conrad esophagus in the setting of coffee-ground emesis. 2. Permanent pacemaker for sick sinus syndrome. 3. Chronic gastritis. 4. Severe gastroesophageal reflux disease. 5. Essential hypertension. 6. Hyperlipidemia. 7. Primary osteoarthritis. 8. Coronary artery disease with prior history of stent. 9. Hypothyroidism. 10.Diabetes mellitus type 2 on oral hypoglycemic. PLAN: Will await for formal results of the EGD study. Patient should be able to go home tomorrow. Care was discussed with the patient. Patient is on a full liquid diet. MMODL / IJN: [id number] /
[2018-03-15] MEDS: LEVOTHYROXINE 50 MCG TAB PO SCH (05:24)
[2018-03-15 05:51] VITALS: BP 116/66; PULSE 69; TEMP 98.3
[2018-03-15] MEDS: INSULIN ASPART 100 UNIT/ML 1 ML 10 ML VIAL SQ SCH ×2 (08:00→12:42)
[2018-03-15] MEDS: amLODIPine 5 MG TAB PO SCH (08:00)
[2018-03-15] MEDS: PANTOPRAZOLE 40 MG TABLET PO SCH (08:00)
[2018-03-15] MEDS: METOPROLOL TARTRATE 25 MG TAB PO SCH (08:01)
[2018-03-15] MEDS: ATORVASTATIN 10 MG TAB PO SCH (08:01)
[2018-03-15] MEDS: ISOSORBIDE MONONITRATE ER 30 MG TAB.ER.24H PO SCH (08:01)
[2018-03-15 12:08] LABS: Glucose,Whole Blood 164 mg/dL (75-99)
--- NOTE | 2018-03-15 12:10 | P.CONS ---
History of Present Illness - Reason for Consult Consult date: 03/14/18 Coffee ground emesis - History of Present Illness The patient is an 82-year-old female who presented to the ER with abdominal pain. The pain was of recent onset described as diffuse achy and constant. She denied any chest pain or shortness of breath. The patient also reported that she was seen in the emergency room earlier and chose not to stay but on her way home she vomited including coffee-ground emesis. The patient was thus admitted to the hospital and we're asked to see her regarding acute on chronic abdominal pain and coffee-ground emesis. The patient denied dysphagia, odynophagia or any hematochezia or black stools. No unintentional weight loss. She does have chronic reflux symptoms and has been on medications over the years. Review of Systems Constitutional: Denied fever, chills or unintentional weight loss Neurologic: No headaches, double vision or other sensory or motor changes Cardiopulmonary: No chest pains, shortness of breath or palpitations Gastrointestinal: See present illness above Genitourinary: No hematuria, dysuria or frequency Musculoskeletal:No joint swelling or pain Skin: No rashes Hematologic: No bleeding tendency Psychiatric: No anxiety or depression Past Medical History Past Medical History: Chest Pain / Angina, Diabetes Mellitus, GERD/Reflux, Hyperlipidemia, Hypertension, Myocardial Infarction (MO), Osteoarthritis (OA), Pneumonia, Thyroid Disorder Additional Past Medical History / Comment(s): carotid stenosis,sob w/activity, freq constipation,numbness and tingling thomas hands, pneumonia 4 yrs ago, gallstones, urinary leakage, uses a walker. Last Myocardial Infarction Date:: 2003 History of Any Multi-Drug Resistant Organisms: None Reported Past Surgical History: Appendectomy, Back Surgery, Cholecystectomy, Heart Catheterization With Stent, Pacemaker, Tonsillectomy Additional Past Surgical History / Comment(s): thomas cataract, right carotid endarterectomy,2-12-16 LAP UMBILICAL HERNIA REPAIR AND CHOLEY Past Anesthesia/Blood Transfusion Reactions: Motion Sickness, Postoperative Nausea & Vomiting (PONV) Date of Last Stent Placement:: 2003 Type of Cardiac Device: Permanent Pacemaker Device Placement Date:: December 02, 2017 Past Psychological History: Anxiety, Depression Additional Psychological History / Comment(s): Pt resides alone at [facility]. She states she is depressed r/t being in chronic pain and missing her children and grandchildren. She states she is not happy living at [facility]. "I don't have a life." She states she has has suicidal thoughts but none at this time and has not ever had a plan. She states she has recently been prescribed something for the depression and has is at home but is afraid to start taking the medication. Pt states she receives home care thru [facility]. Smoking Status: Never smoker Past Alcohol Use History: None Reported Past Drug Use History: None Reported - Past Family History Father Family Medical History: Liver Disease Additional Family Medical History / Comment(s): etoh, cirrhosis of the liver Mother Family Medical History: Diabetes Mellitus Additional Family Medical History / Comment(s): heart problems. Son(s) Family Medical History: Diabetes Mellitus Medications and Allergies Home Medications Medication Instructions Recorded Confirmed Type Isosorbide Mononitrate [Imdur] 30 mg PO DAILY 01/10/14 03/12/18 History glipiZIDE XL [Glucotrol XL] 7.5 mg PO [id number] 10/14/15 03/12/18 History Aspirin EC [Ecotrin Low Dose] 81 mg PO DAILY 12/07/15 03/12/18 History Levothyroxine Sodium [Synthroid] 50 mcg PO DAILY 04/15/16 03/12/18 History Atorvastatin [Lipitor] 10 mg PO DAILY 11/27/17 03/12/18 History amLODIPine [Norvasc] 5 mg PO DAILY #30 tab 12/02/17 03/12/18 Rx Metoprolol Tartrate 25 mg PO BID 02/14/18 03/12/18 History Ranitidine HCl [Zantac] 150 mg PO BID 02/14/18 03/12/18 History Allergies Allergy/AdvReac Type Severity Reaction Status Date / Time codeine AdvReac Nausea & Verified 03/12/18 13:45 Vomiting Physical Exam Vitals: Vital Signs Temp Pulse Resp BP Pulse Ox 03/14/18 05:59 97.7 F 63 17 147/64 97 03/13/18 22:48 98.7 F 57 L 17 99/48 95 Intake and Output 03/14/18 03/14/18 03/14/18 06:59 14:59 22:59 Intake Total 400 Balance 400 Intake: IV 100 Oral 300 Other: Voiding Method Toilet Toilet # Voids 3 3 1 Weight 62.142 kg General: Appears stated age, very pleasant in no acute distress Head and neck: Normocephalic and atraumatic, conjunctivae pink and sclerae not icteric, mucous membranes moist and pink. No masses in the neck or tracheal shifts Lungs: Clear to auscultation with no dullness to percussion Heart: Irregular, no abnormal sounds, murmurs, gallops or friction Abdomen: Soft, no masses or organomegalies. No tenderness. Bowel sounds present Extremities: No clubbing, cyanosis or edema Neurologic: Alert and oriented 3. Cranial nerves grossly intact. No gross sensory or motor abnormalities Results CBC & Chem 7: 03/12/18 16:41 03/12/18 16:41 Labs: Abnormal Lab Results - Last 24 Hours (Table) 03/14/18 Range/Units 21:17 POC Glucose (mg/dL) 156 H (75-99) mg/dL Assessment and Plan Assessment: Abdominal pain and coffee-ground emesis, should rule out peptic ulcer disease. At her age malignancy should be kept in mind. Plan: I agree with her current management. We will proceed with an upper endoscopy. Further plans based on the findings.
--- NOTE | 2018-03-15 12:20 | P.PCN ---
Date of Procedure: 03/14/18 Procedure(s) Performed: Procedure: Esophagogastroduodenoscopy and biopsy. Preoperative diagnosis: Abdominal pain and coffee-ground emesis. Postoperative diagnosis: Hiatal hernia with Conrad's esophagus. Mild gastritis and duodenitis. No active bleeding is noted at the time of this exam. Biopsies were obtained from the duodenum, antrum, and esophagus and the Conrad's segment and proximal to the isidro-GE junction. Preparation and sedation: Was provided by anesthesia. Brief clinical history: The patient is an 82-year-old female who presented to the ER with abdominal pain. The pain was of recent onset described as diffuse achy and constant. She denied any chest pain or shortness of breath. The patient also reported that she was seen in the emergency room earlier and chose not to stay but on her way home she vomited including coffee-ground emesis. The patient was thus admitted to the hospital and we're asked to see her regarding acute on chronic abdominal pain and coffee-ground emesis. The patient denied dysphagia, odynophagia or any hematochezia or black stools. No unintentional weight loss. She does have chronic reflux symptoms and has been on medications over the years. Her hemoglobin was stable at 12.6. Other details as summarized in the history and physical and dictated consultation and progress notes. Procedure: With the patient on her left lateral decubitus position and after informed consent and adequate sedation, I passed the Olympus GIF-140 60 video upper endoscope through the cricopharyngeus down the esophagus. The isidro-GE junction started at around 28 cm from the incisors and the tubular esophagus continued to around 32 cm and there was a moderately sized hiatal hernia. The area in the distal esophagus around the isidro-GE junction showed a linear erosion or 2 consistent with reflux esophagitis. There were no strictures or tumors seen or any active bleeding. The endoscope was then passed into the stomach which was insufflated with air and inspected in detail including the retroflex view in the cardia. There was minimal mottling and erythema in the antrum but no ulcers, erosions or bleeding. Pyloric channel did not show any ulcers. Duodenal bulb showed some erythema and minimal friability but no ulcers or erosions. Post-bulbar area and descending duodenum appeared within normal limits. Because of the symptoms, I obtained biopsies from the duodenum in addition to biopsies from the antrum and esophagus. The patient tolerated the procedure well. Plan the patient was reassured. Will await biopsy results while continuing intensive medical therapy. Further plans based on her course.
[2018-03-15] MEDS: SODIUM CHLORIDE 0.9% 1,000 ML IV SCH (12:41)
--- NOTE | 2018-03-15 20:40 | DS ---
DISCHARGE SUMMARY DATE OF ADMISSION: 03/12/18. DATE OF DISCHARGE: 03/15/18. FINAL DIAGNOSES: 1. Acute gastrointestinal bleed from severe esophagitis and gastritis. 2. Conrad's esophagitis. 3. Permanent pacemaker for sick sinus syndrome. 4. Severe gastroesophageal reflux disease. 5. Essential hypertension. 6. Hyperlipidemia. 7. Primary osteoarthritis. 8. Coronary artery disease with prior history of stent. 9. Hypothyroidism. 10.Diabetes mellitus type 2 on oral hypoglycemia. HOSPITAL COURSE: This patient admitted with acute on chronic abdominal pain, coffee-grounds emesis. I do have a formal report of the EGD that did show at least Conrad's esophagus. Patient's hemoglobin remained stable. It was 12.6. The patient did have a EGD. Care was discussed in detail with the patient. EXAMINATION: ABDOMEN: Soft, Nontender. Lungs are clear. CONSULTATION: Dr. Naranjo from GI who did the EGD. DISCHARGE MEDICATIONS: 1. Imdur 30 mg a day. 2. Aspirin 81 mg a day. 3. Synthroid 50 mcg a day. 4. Lipitor 10 mg a day. 5. Norvasc 5 mg a day. 6. Metoprolol 25 mg b.i.d. 7. TUMs 1000 mg p.o. q.4 p.r.n. 8. Melatonin 3 mg q.h.s. p.r.n. 9. Protonix 40 mg with breakfast. 10.Glucotrol XL 2.5 mg at breakfast. The dose was decreased. FOLLOWUP: Follow up with Dr. Naranjo in 2 weeks. Follow up with Dr. Guzman Ojeda in 3 days. Discussion and discharge planning more than 35 minutes. MMODL / IJN: [id number] /
[2018-03-16 07:46] LABS: Glucose,Whole Blood 113 mg/dL (75-99)
[2018-03-16 07:47] LABS: Glucose,Whole Blood 98 mg/dL (75-99)
[2018-03-16 07:48] LABS: Glucose,Whole Blood 88 mg/dL (75-99)
[2018-03-16 07:48] LABS: Glucose,Whole Blood 118 mg/dL (75-99)
[2018-03-16 07:48] LABS: Glucose,Whole Blood 92 mg/dL (75-99)
== END 2018-03-15 13:55 | disposition home health service (06) | DRG 381 ==
LOC: EC 22:41 → 4MS4W 03-12 01:13
PROVIDERS: ADMIT Hospitalist; ATTEND Hospitalist
PROC: 0DB78ZX Excision of Stomach, Pylorus, Via Natural or Artificial Opening Endoscopic, Diagnostic (ICD-10-PCS; 2018-03-14)
PROC: 0DB58ZX Excision of Esophagus, Via Natural or Artificial Opening Endoscopic, Diagnostic (ICD-10-PCS; 2018-03-14)
PROC: 0DB48ZX Excision of Esophagogastric Junction, Via Natural or Artificial Opening Endoscopic, Diagnostic (ICD-10-PCS; 2018-03-14)
PROC: 0DB98ZX Excision of Duodenum, Via Natural or Artificial Opening Endoscopic, Diagnostic (ICD-10-PCS; principal; 2018-03-14 07:45)
DX: K22.70 Barrett's esophagus without dysplasia (principal); R45.851 Suicidal ideations; K29.51 Unspecified chronic gastritis with bleeding; E11.9 Type 2 diabetes mellitus without complications; K29.80 Duodenitis without bleeding; K22.8 Other specified diseases of esophagus; K21.0 Gastro-esophageal reflux disease with esophagitis; K44.9 Diaphragmatic hernia without obstruction or gangrene; I10 Essential (primary) hypertension; I25.10 Atherosclerotic heart disease of native coronary artery without angina pectoris; E03.9 Hypothyroidism, unspecified; E78.5 Hyperlipidemia, unspecified; M19.91 Primary osteoarthritis, unspecified site; R32 Unspecified urinary incontinence; F41.9 Anxiety disorder, unspecified; I25.2 Old myocardial infarction; G89.29 Other chronic pain; F32.9 Major depressive disorder, single episode, unspecified; R10.30 Lower abdominal pain, unspecified; K59.09 Other constipation; Z79.82 Long term (current) use of aspirin; Z79.84 Long term (current) use of oral hypoglycemic drugs; Z79.890 Hormone replacement therapy; Z79.899 Other long term (current) drug therapy; Z95.0 Presence of cardiac pacemaker; Z95.5 Presence of coronary angioplasty implant and graft; Z90.49 Acquired absence of other specified parts of digestive tract; Z98.42 Cataract extraction status, left eye; Z98.41 Cataract extraction status, right eye; Z87.01 Personal history of pneumonia (recurrent); Z86.79 Personal history of other diseases of the circulatory system; Z88.5 Allergy status to narcotic agent; Z83.3 Family history of diabetes mellitus; Z82.49 Family history of ischemic heart disease and other diseases of the circulatory system
CPT/HCPCS: 36415; 43239; 71046; 71275; 74176; 80053; 80306; 81001; 82075; 82550; 82553; 83690; 83735; 83880; 84484; 85025; 85379; 85610; 85730; 87086; 88305; 93005; 96361; 96374; 96375; 99285